=== PATIENT | female | born 1945 | race Caucasian/White ===

== ENCOUNTER 2018-03-08 19:49 | Emergency (ER) | payer MEDICARE, BC ==
--- NOTE | 2018-03-08 21:48 | ER Document Report ---
ED General - General Chief Complaint: Laceration Stated Complaint: LEG LACERATION Time Seen by Provider: 03/08/18 21:40 Notes: Patient is a 72-year-old female with a past medical history of morbid obesity with associated lymphedema of the bilateral lower extremities who presents after a mechanical fall sustaining a 6 cm horizontal laceration over the distal left lower extremity. Patient states that she was using her motorized wheelchair through a garden and it got stuck in the mud. She states that she stood up feeling that her weight was likely causing the wheelchair to become stuck. However she states she was unable to support her own weight, falling forward and striking her leg against a wheelchair. She states that she did fall backwards but does not believe that she hit her head or neck. She denies any pain to any other location other than her leg where she describes a stinging , burning, constant pain to the area. Nothing improves or worsens that pain. She states she has had multiple prior lacerations to her legs and that they are always unable to be repaired via sutures due to the friable nature of her skin. TRAVEL OUTSIDE OF THE [place] IN LAST 30 DAYS: No - Related Data Allergies/Adverse Reactions: ciprofloxacin [From Cipro] Allergy (Verified 03/08/18 19:57) Sulfa (Sulfonamide Antibiotics) Allergy (Verified 03/08/18 19:57) Past Medical History - General Information source: Patient - Social History Smoking Status: Never Smoker Chew tobacco use (# tins/day): No Frequency of alcohol use: Occasional Drug Abuse: None Lives with: Spouse/Significant other Family History: Reviewed & Not Pertinent Patient has suicidal ideation: No Patient has homicidal ideation: No - Past Medical History Cardiac Medical History: Reports: Hx Congestive Heart Failure, Hx Hypercholesterolemia, Hx Hypertension Renal/ Medical History: Denies: Hx Peritoneal Dialysis GI Medical History: Reports: Hx Gastroesophageal Reflux Disease Past Surgical History: Reports: Hx Abdominal Surgery - lap band Review of Systems - Review of Systems Notes: Constitutional: Negative for fever. Eyes: Negative for visual changes. ENT: Negative for facial injury Cardiovascular: Negative for chest injury. Respiratory: Negative for shortness of breath. Gastrointestinal: Negative for abdominal injury. Genitourinary: Negative for genital injury Musculoskeletal: Negative for back injury. Skin: Positive for laceration/abrasions. Neurological: Negative for head injury. Physical Exam - Vital signs Vitals: Temp Pulse Resp BP Pulse Ox 98.1 F 112 H 18 132/76 H 95 03/08/18 20:18 03/08/18 20:18 03/08/18 20:18 03/08/18 20:18 03/08/18 20:18 Interpretation: Tachycardic - Resolved at the time of my assessment Notes: PHYSICAL EXAMINATION: GENERAL: Well-appearing, well-nourished and in no acute distress. HEAD: Atraumatic, normocephalic. EYES: Pupils equal round and reactive to light, extraocular movements intact, sclera anicteric, conjunctiva are normal. ENT: nares patent, oropharynx clear without exudates. Moist mucous membranes. NECK: Normal range of motion, supple without lymphadenopathy LUNGS: Breath sounds clear to auscultation bilaterally and equal. No wheezes rales or rhonchi. HEART: Regular rate and rhythm without murmurs ABDOMEN: Soft, nontender, normoactive bowel sounds. No guarding, no rebound. No masses appreciated. EXTREMITIES: Normal range of motion, 4+ pitting edema in the bilateral lower extremities that is equal and symmetric consistent with lymphedema NEUROLOGICAL: No focal neurological deficits. Moves all extremities spontaneously and on command. PSYCH: Normal mood, normal affect. SKIN: Warm, Dry, normal turgor, there is a 6 cm horizontal laceration over the left distal lower extremity Course - Re-evaluation Re-evalutation: 03/08/18 21:47 Patient presents after mechanical fall which she sustained a 6 cm laceration over her distal left lower extremity. The area of the laceration is over a diffusely edematous, lymphedema area. Patient reports that any of prior attempts of placing stitches in this area have been unsuccessful and the tissue was extremely friable. The wound was therefore irrigated and cleaned and was able to be closed using Dermabond with success. Patient's tetanus is already up -to-date. She denies any additional trauma or concerns from today's injury. At this time will discharge with return precautions and follow-up recommendations. Verbal discharge instructions given a the bedside and opportunity for questions given. Medication warnings reviewed. Patient is in agreement with this plan and has verbalized understanding of return precautions and the need for primary care follow-up in the next 24-72 hours. - Vital Signs Vital signs: Temp Pulse Resp BP Pulse Ox 98.4 F 89 20 138/73 H 97 03/08/18 21:55 03/08/18 21:55 03/08/18 21:55 03/08/18 21:55 03/08/18 21:55 Procedures - Laceration/Wound Repair Left Leg Wound length (cm): 6 Wound's Depth, Shape: Superficial Laceration pre-procedure: Sterile PPE donned Wound explored: Clean Irrigated w/ Saline (mLs): 300 Wound Debrided: Minimal Wound Repaired With: Dermabond Post-procedure wound care: Sterile dressing applied Post-procedure NV exam normal: Yes Complications: No Discharge - Discharge Clinical Impression: Lymphedema Fall Qualifiers: Encounter type: initial encounter Qualified Code(s): W19.XXXA - Unspecified fall, initial encounter Laceration of left leg Qualifiers: Encounter type: initial encounter Qualified Code(s): S81.812A - Laceration without foreign body, left lower leg, initial encounter Condition: Good Disposition: HOME, SELF-CARE Additional Instructions: The wound has been closed with glue. Please do not pick at the at the wound. Do not cover it with any kind of antibiotic ointment as this can cause the glue to loosen. Return immediately if you develop spreading redness around the wound , pus from the wound, worsening pain, or a fever of >100.4. Keep the area clean and dry.
[2018-03-09 02:03] VITALS: BP 138/73
== END 2018-03-08 21:58 | disposition home or self-care (01) ==
LOC: ER 19:49
PROC: 0HQLXZZ Repair Left Lower Leg Skin, External Approach (ICD-10-PCS; principal; 2018-03-08)
DX: S81.812A Laceration without foreign body, left lower leg, initial encounter (principal); W19.XXXA Unspecified fall, initial encounter; E66.01 Morbid (severe) obesity due to excess calories; I89.0 Lymphedema, not elsewhere classified; I50.9 Heart failure, unspecified; E78.00 Pure hypercholesterolemia, unspecified; I10 Essential (primary) hypertension; Z88.2 Allergy status to sulfonamides; Z88.3 Allergy status to other anti-infective agents
CPT/HCPCS: 99283

== ENCOUNTER 2018-03-12 19:14 | Inpatient (IN) | payer MEDICARE, BC ==
--- NOTE | 2018-03-12 19:44 | ER Document Report ---
ED General - General Stated Complaint: DIFFICULTY BREATHING Time Seen by Provider: 03/12/18 19:33 Notes: patient is a morbidly obese nonambulatory 72 year old female who presents to the ED complaining of multiple complaints but per patient and EMS run sheet, she admits to SOB without cough, chest pain but cannot give a timeline. She states she has had difficulty with her breathing for the past 2-3 years and states her breathing now feels consistent with her baseline. Regarding her urinary symptoms, patient admits to frequency, urgency, denies pyuria. She cannot give a timeline for onset. She was seen her on 03/06 s/p fall for a laceration on her left anterior tibia that was cleaned and closed with dermabond due to significant lower extremity edema. PMH; congestive heart failure, GERD, diabetes Primary care is with [facility] TRAVEL OUTSIDE OF THE [place] IN LAST 30 DAYS: No - Related Data Allergies/Adverse Reactions: ciprofloxacin [From Cipro] Allergy (Verified 03/12/18 22:47) Sulfa (Sulfonamide Antibiotics) Allergy (Verified 03/12/18 22:47) Past Medical History - Social History Smoking Status: Smoker,Current Status Unk Family History: Reviewed & Not Pertinent - Past Medical History Cardiac Medical History: Reports: Hx Congestive Heart Failure, Hx Hypercholesterolemia, Hx Hypertension Renal/ Medical History: Denies: Hx Peritoneal Dialysis GI Medical History: Reports: Hx Gastroesophageal Reflux Disease Past Surgical History: Reports: Hx Abdominal Surgery - lap band Review of Systems - Review of Systems Constitutional: No symptoms reported EENT: No symptoms reported Cardiovascular: No symptoms reported Respiratory: See HPI Gastrointestinal: No symptoms reported Genitourinary: See HPI Musculoskeletal: See HPI Skin: See HPI -: Yes All other systems reviewed and negative Physical Exam - Vital signs Vitals: Pulse Ox 100 03/12/18 22:17 - Notes Notes: PHYSICAL EXAM GENERAL: Alert, interacts well. HEAD: Normocephalic, atraumatic. EYES: Pupils equal, round, and reactive to light. Extraocular movements intact. ENT: Oral mucosa moist, tongue midline. NECK: Full range of motion. Supple. Trachea midline. LUNGS: Clear to auscultation bilaterally, no wheezes, rales, or rhonchi. No respiratory distress. HEART: Regular rate and rhythm. No murmurs, gallops, or rubs. ABDOMEN: Soft, nondistended, nontender. No guarding, rebound, or rigidity.. Bowel sounds present in all 4 quadrants. EXTREMITIES: Significant 4+ edema, radial and dorsalis pedis pulses 2/4 bilaterally. No cyanosis. NEUROLOGICAL: Alert and oriented x4. Normal speech. PSYCH: Normal affect, normal mood. SKIN: Warm, dry, normal turgor. Left lower extremity with well demarcated erythema two lacerations with purulent drainage without fluctuance Course - Re-evaluation Re-evalutation: 03/13/18 00:49 Patient is a 72-year-old female is hemodynamically stable, no acute distress and afebrile. Presentation and today concerning for left lower extremity cellulitis and concern for underlying pyelonephritis with review of acute renal failure as well as pyuria. Hospitalists requesting evaluation for possible obstruction. Patient weight prohibits her from CT scan at our facility due to the table cannot support her. Will pursue a ultrasound of bilateral kidneys and continue to reassess. 03/13/18 01:57 US does not show concern for hydronephrosis or evidence of stones. she has been accepted for admission - Vital Signs Vital signs: Temp Pulse Resp BP Pulse Ox 23 H 121/71 97 03/13/18 03:01 03/13/18 03:01 03/13/18 03:01 - Laboratory Result Diagrams: 03/12/18 21:00 03/12/18 21:00 Laboratory results interpreted by me: 03/12/18 03/12/18 03/12/18 20:12 21:00 21:00 WBC 13.5 H RBC 3.65 L Hgb 9.9 L Hct 31.3 L MCHC 31.8 L RDW 17.3 H Seg Neutrophils % 86.0 H Lymphocytes % 5.2 L Absolute Neutrophils 11.6 H Potassium 5.1 H Carbon Dioxide 31 H BUN 62 H Creatinine 2.76 H Est GFR ( Amer) 20 L Est GFR (Non-Af Amer) 17 L Glucose 192 H Direct Bilirubin 0.5 H AST 85 H NT-Pro-B Natriuret Pep Total Protein 6.1 L Albumin 3.4 L Urine Blood MODERATE H Urine Nitrite POSITIVE H Ur Leukocyte Esterase MODERATE H 03/12/18 21:00 WBC RBC Hgb Hct MCHC RDW Seg Neutrophils % Lymphocytes % Absolute Neutrophils Potassium Carbon Dioxide BUN Creatinine Est GFR ( Amer) Est GFR (Non-Af Amer) Glucose Direct Bilirubin AST NT-Pro-B Natriuret Pep 1090 H Total Protein Albumin Urine Blood Urine Nitrite Ur Leukocyte Esterase - Diagnostic Test Radiology reviewed: Image reviewed, Reports reviewed Discharge - Discharge Clinical Impression: Cellulitis, UTI (urinary tract infection), ARF (acute renal failure) Condition: Stable Disposition: ADMITTED INPATIENT Admitting Provider: Hospitalist Unit Admitted: Telemetry
--- NOTE | 2018-03-12 21:04 | RADIOLOGY REPORT (SQ) ---
EXAM DESCRIPTION: TIBIA FIBULA LEFT COMPLETED DATE/TIME: 03/12/2018 8:52 pm REASON FOR STUDY: erythema, tenderness COMPARISON: None. NUMBER OF VIEWS: Two views. TECHNIQUE: Two radiographic images acquired of the left tibia and fibula to include the knee and ank le in at least one projection. LIMITATIONS: None. FINDINGS: MINERALIZATION: Normal. BONES: No acute fracture or dislocation. Severe medial tibiofemoral arthrosis. . SOFT TISSUES: Diffuse swelling. Medial soft tissue laceration without radiopaque foreign body. OTHER: No other significant finding. IMPRESSION: Medial soft tissue laceration without radiopaque foreign body. No fracture. TECHNICAL DOCUMENTATION: JOB ID: [id number] 2010 [employer]- All Rights Reserved Reading location - IP/workstation name: [email or web address]
--- NOTE | 2018-03-12 21:08 | RADIOLOGY REPORT (SQ) ---
EXAM DESCRIPTION: CHEST SINGLE VIEW COMPLETED DATE/TIME: 03/12/2018 8:52 pm REASON FOR STUDY: SOB COMPARISON: None. EXAM PARAMETERS: NUMBER OF VIEWS: One view. TECHNIQUE: Single frontal radiographic view of the chest acquired. RADIATION DOSE: NA LIMITATIONS: None. FINDINGS: LUNGS AND PLEURA: No consolidation, masses or pneumothorax. No pleural effusion. MEDIASTINUM AND HILAR STRUCTURES: Age-appropriate. HEART AND VASCULAR STRUCTURES: Heart upper limits of normal in size. Normal vasculature. BONES: No acute findings. HARDWARE: None in the chest. OTHER: No other significant finding. IMPRESSION: NO ACUTE RADIOGRAPHIC FINDING IN THE CHEST. TECHNICAL DOCUMENTATION: JOB ID: [id number] 2010 [employer]- All Rights Reserved Reading location - IP/workstation name: [email or web address]
[2018-03-12 21:11] LABS: ABSOLUTE BASOPHILS # (AUTO) 0.1 10^3/uL (0.0-0.2); ABSOLUTE EOSINOPHILS # (AUTO) 0.1 10^3/uL (0.0-0.6); ABSOLUTE LYMPHOCYTES (AUTO) 0.7 10^3/uL (0.5-4.7); ABSOLUTE MONOCYTES (AUTO) 1.1 10^3/uL (0.1-1.4); ABSOLUTE NEUT (AUTO) 11.6 10^3/uL (1.7-8.2); BASOPHILS % (AUTO) 0.6 % (0-2); EOSINOPHILS % (AUTO) 0.4 % (0-6); HEMATOCRIT 31.3 % (36.0-47.0); HEMOGLOBIN 9.9 g/dL (12.0-15.5); LYMPHOCYTES % (AUTO) 5.2 % (13-45); MEAN CORPUSCULAR HEMOGLOBIN 27.3 pg (27.0-33.4); MEAN CORPUSCULAR HGB CONC 31.8 g/dL (32.0-36.0); MEAN CORPUSCULAR VOLUME 86 fl (80-97); MONOCYTES % (AUTO) 7.8 % (3-13); PLATELET COUNT 207 10^3/uL (150-450); RED BLOOD COUNT 3.65 10^6/uL (3.72-5.28); RED CELL DISTRIBUTION WIDTH 17.3 % (11.5-14.0); TOTAL CELLS COUNTED % (AUTO) 100 %; WHITE BLOOD COUNT 13.5 10^3/uL (4.0-10.5)
[2018-03-12 21:14] LABS: VENOUS BLOOD BASE EXCESS 3.3 mmol/L; VENOUS BLOOD HCO3 30.6 mmol/L (20-32); VENOUS BLOOD PCO2 61.2 mmHg (35-63); VENOUS BLOOD PH 7.32 (7.30-7.42)
[2018-03-12 21:18] LABS: INTERNATIONAL RATION (INR) 1.08; PROTHROMBIN TIME 14.6 SEC (11.4-15.4)
[2018-03-12 21:27] LABS: ALANINE AMINOTRANSFERASE 40 U/L (9-52); ALBUMIN 3.4 g/dL (3.5-5.0); ALKALINE PHOSPHATASE 78 U/L (38-126); ANION GAP 11 (5-19); ASPARTATE AMINO TRANSFERASE 85 U/L (14-36); BILIRUBIN,DIRECT 0.5 mg/dL (0.0-0.4); BILIRUBIN,TOTAL 0.5 mg/dL (0.2-1.3); BLOOD UREA NITROGEN 62 mg/dL (7-20); CARBON DIOXIDE 31 mmol/L (22-30); CHLORIDE 98 mmol/L (98-107); GLUCOSE 192 mg/dL (75-110); POTASSIUM 5.1 mmol/L (3.6-5.0); SODIUM 140.2 mmol/L (137-145); TOTAL PROTEIN 6.1 g/dL (6.3-8.2)
[2018-03-12 21:51] LABS: AMORPHOUS SEDIMENT,URINE TRACE /HPF; APPEARANCE,URINE SLIGHTLY-CLOUDY; BILIRUBIN,URINE NEGATIVE (NEGATIVE); COLOR,URINE YELLOW; GLUCOSE, URINE NEGATIVE (NEGATIVE); KETONES,URINE NEGATIVE (NEGATIVE); LEUKOCYTE ESTERASE,URINE MODERATE (NEGATIVE); NITRITE,URINE POSITIVE (NEGATIVE); PROTEIN,URINE NEGATIVE (NEGATIVE); URINE SPECIFIC GRAVITY 1.015; UROBILINOGEN,URINE NEGATIVE mg/dL (<2.0)
--- NOTE | 2018-03-13 01:38 | RADIOLOGY REPORT (SQ) ---
EXAM DESCRIPTION: Renal ultrasound. CLINICAL HISTORY: bilateral, eval for obstruction, hydronephrosis COMPARISON: None. TECHNIQUE: Real-time sonographic images of the retroperitoneum were obtained using a curved multihertz transducer. Large body habitus. FINDINGS: The visualized portions of the aorta and IVC are unremarkable. The right kidney measures 9.5 cm in length. The left kidney measures 8.6 cm in length. No definite solid renal mass, shadowing renal calculi, or hydronephrosis. Urinary bladder not identified. Reported Bosch catheter. IMPRESSION: No definite sonographic abnormality identified. No definite hydronephrosis.
[2018-03-13] MEDS ORDERED: ONDANSETRON HCL INJ/PF 4 MG/2 ML SDV IV PRN (02:04)
[2018-03-13] MEDS ORDERED: IPRATROPIUM/ALBUTEROL 0.5-2.5 MG/3 ML AMPUL NEB PRN ×2 (02:04→11:32)
[2018-03-13] MEDS ORDERED: MAG HYDROX/AL HYDROX/SIMETH SUSP 30 ML UDCUP PO PRN (02:04)
[2018-03-13] MEDS ORDERED: MAGNESIUM HYDROXIDE SUSP 30 ML UDCUP PO PRN (02:04)
[2018-03-13] MEDS ORDERED: ACETAMINOPHEN 325 MG TABLET PO PRN (02:04)
[2018-03-13] MEDS ORDERED: CEFTRIAXONE 1 GM/D5W RTU 1 GM/50 ML RTUPB IV ONE (03:00)
[2018-03-13] MEDS: NORMAL SALINE 1000 ML 1,000 ML IV SCH ×2 (04:24→10:41)
[2018-03-13 05:17] LABS: ABSOLUTE EOSINOPHILS # (AUTO) 0.1 10^3/uL (0.0-0.6); ABSOLUTE LYMPHOCYTES (AUTO) 0.7 10^3/uL (0.5-4.7); ABSOLUTE MONOCYTES (AUTO) 1.1 10^3/uL (0.1-1.4); ABSOLUTE NEUT (AUTO) 10.7 10^3/uL (1.7-8.2); BASOPHILS % (AUTO) 0.3 % (0-2); EOSINOPHILS % (AUTO) 0.6 % (0-6); HEMATOCRIT 29.8 % (36.0-47.0); HEMOGLOBIN 9.6 g/dL (12.0-15.5); LYMPHOCYTES % (AUTO) 5.3 % (13-45); MEAN CORPUSCULAR HEMOGLOBIN 27.7 pg (27.0-33.4); MEAN CORPUSCULAR HGB CONC 32.1 g/dL (32.0-36.0); MEAN CORPUSCULAR VOLUME 86 fl (80-97); MONOCYTES % (AUTO) 8.9 % (3-13); PLATELET COUNT 189 10^3/uL (150-450); RED BLOOD COUNT 3.45 10^6/uL (3.72-5.28); RED CELL DISTRIBUTION WIDTH 17.1 % (11.5-14.0); SEGMENTED NEUTROPHILS % (AUTO) 84.9 % (42-78); TOTAL CELLS COUNTED % (AUTO) 100 %; WHITE BLOOD COUNT 12.6 10^3/uL (4.0-10.5)
[2018-03-13 05:32] LABS: ANION GAP 11 (5-19); BLOOD UREA NITROGEN 63 mg/dL (7-20); CALCIUM 8.7 mg/dL (8.4-10.2); CARBON DIOXIDE 29 mmol/L (22-30); CHLORIDE 101 mmol/L (98-107); GLUCOSE 190 mg/dL (75-110); POTASSIUM 5.1 mmol/L (3.6-5.0)
[2018-03-13] MEDS: HEPARIN SOD (PORCINE) 5,000 UNIT/ML 1 ML SYRINGE SUBCUT SCH ×3 (05:52→21:31)
--- NOTE | 2018-03-13 06:05 | PDOC H&P ---
History of Present Illness Admission Date/PCP: 03/13/18 02:07 Patient complains of: Leg pain History of Present Illness: PREM COURTNEY is a 72 year old female with a past medical history of morbid obesity, obstructive sleep apnea, chronic venous stasis, diabetes, hypertension , dyslipidemia and debility. She presents after several falls of the last 5 days seen in the emergency room 3 days ago for 6 cm laceration to the left lower leg. At that time the laceration was amenable to Dermabond patient was discharged with instructions to return if develops increased pain or fever. Over the last 6 hours she is noted increased erythema, edema, pain and discharge prompting evaluation emergency room where she is found to have leukocytosis, acute renal failure pyuria and cellulitis of the left lower leg. She started on empiric antibiotics, IV fluids and referred to the hospitalist for admission. Patient describes multiple previous lower extremity injuries requiring sutures and debridement. She admits recent antibiotic use but cannot recall the name Past Medical History Cardiac Medical History: Reports: Congestive Heart Failure, Hyperlipidema, Hypertension Pulmonary Medical History: Reports: Chronic Obstructive Pulmonary Disease (COPD) Endocrine Medical History: Reports: Diabetes Mellitus Type 2, Obesity GI Medical History: Reports: Gastroesophageal Reflux Disease Social History Information Source: Patient, [facility] Records Smoking Status: Smoker,Current Status Unk Frequency of Alcohol Use: Rare Hx Recreational Drug Use: No Drugs: None - Advance Directive Resuscitation Status: Full Code Family History Family History: DM Parental Family History Reviewed: Yes Children Family History Reviewed: Yes Sibling(s) Family History Reviewed.: Yes Medication/Allergy Allergies/Adverse Reactions: ciprofloxacin [From Cipro] Allergy (Verified 03/12/18 22:47) Sulfa (Sulfonamide Antibiotics) Allergy (Verified 03/12/18 22:47) Review of Systems Constitutional: PRESENT: as per HPI, anorexia, chills, fatigue, fever(s), weakness. ABSENT: headache(s), weight gain, weight loss Eyes: ABSENT: visual disturbances Ears: ABSENT: hearing changes Cardiovascular: ABSENT: chest pain, dyspnea on exertion, edema, orthropnea, palpitations Respiratory: ABSENT: cough, hemoptysis Gastrointestinal: ABSENT: abdominal pain, constipation, diarrhea, hematemesis, hematochezia, nausea, vomiting Genitourinary: PRESENT: as per HPI, dysuria. ABSENT: hematuria Musculoskeletal: ABSENT: joint swelling Integumentary: ABSENT: rash, wounds Neurological: ABSENT: abnormal gait, abnormal speech, confusion, dizziness, focal weakness, syncope Psychiatric: ABSENT: anxiety, depression, homidical ideation, suicidal ideation Endocrine: ABSENT: cold intolerance, heat intolerance, polydipsia, polyuria Hematologic/Lymphatic: PRESENT: as per HPI, other - Chronic changes of lymphedema with venous stasis. ABSENT: easy bleeding, easy bruising Physical Exam Vital Signs: Temp Pulse Resp BP Pulse Ox 109 H 23 H 121/71 97 03/13/18 04:06 03/13/18 03:01 03/13/18 03:01 03/13/18 03:01 General appearance: PRESENT: cooperative, disheveled, mild distress, morbidly obese Head exam: PRESENT: atraumatic, normocephalic Eye exam: PRESENT: conjunctiva pink, EOMI, PERRLA. ABSENT: scleral icterus Ear exam: PRESENT: normal external ear exam Mouth exam: PRESENT: moist, tongue midline Neck exam: ABSENT: carotid bruit, JVD, lymphadenopathy, thyromegaly Respiratory exam: PRESENT: clear to auscultation janis, crackles, decreased breath sounds, symmetrical, tachypnea. ABSENT: rales, rhonchi, stridor, wheezes Cardiovascular exam: PRESENT: RRR. ABSENT: diastolic murmur, rubs, systolic murmur Pulses: PRESENT: normal dorsalis pedis pul Vascular exam: PRESENT: normal capillary refill GI/Abdominal exam: PRESENT: normal bowel sounds, soft. ABSENT: distended, guarding, mass, organolmegaly, rebound, tenderness Rectal exam: PRESENT: deferred Extremities exam: PRESENT: +2 edema Musculoskeletal exam: PRESENT: tenderness Neurological exam: PRESENT: alert, awake, oriented to person, oriented to place , oriented to time, oriented to situation, CN II-XII grossly intact. ABSENT: motor sensory deficit Psychiatric exam: PRESENT: appropriate affect, normal mood. ABSENT: homicidal ideation, suicidal ideation Skin exam: PRESENT: abrasion, erythema, skin tears, warm Results Laboratory Results: 03/13/18 04:21 03/13/18 04:21 03/13/18 03/13/18 04:21 04:21 WBC 12.6 H RBC 3.45 L Hgb 9.6 L Hct 29.8 L MCV 86 MCH 27.7 MCHC 32.1 RDW 17.1 H Plt Count 189 Seg Neutrophils % 84.9 H Lymphocytes % 5.3 L Monocytes % 8.9 Eosinophils % 0.6 Basophils % 0.3 Absolute Neutrophils 10.7 H Absolute Lymphocytes 0.7 Absolute Monocytes 1.1 Absolute Eosinophils 0.1 Absolute Basophils 0.0 Sodium 141.0 Potassium 5.1 H Chloride 101 Carbon Dioxide 29 Anion Gap 11 BUN 63 H Creatinine 2.30 H Est GFR ( Amer) 25 L Est GFR (Non-Af Amer) 21 L Glucose 190 H Calcium 8.7 Impressions: Chest X-Ray 03/12/18 19:42 IMPRESSION: NO ACUTE RADIOGRAPHIC FINDING IN THE CHEST. Tibia/Fibula X-Ray 03/12/18 19:42 IMPRESSION: Medial soft tissue laceration without radiopaque foreign body. No fracture. Renal Ultrasound 03/13/18 00:00 IMPRESSION: No definite sonographic abnormality identified. No definite hydronephrosis. Assessment & Plan - Diagnosis (1) Diabetes Qualifiers: Diabetes mellitus type: type 1 Is this a current diagnosis for this admission?: Yes Plan: Home regiment with sliding scale insulin avoid metformin. (2) ARF (acute renal failure) Is this a current diagnosis for this admission?: Yes Plan: Clearly somewhat prerenal awaiting med reconciliation, avoid nephrotoxic meds and doses IV fluid challenge reevaluate chemistry (3) Cellulitis Is this a current diagnosis for this admission?: Yes Plan: Empiric antibiotics, elevation, surgical consultation given diabetes (4) UTI (urinary tract infection) Is this a current diagnosis for this admission?: Yes Plan: No evidence for obstruction, empiric antibiotic, follow-up CBC, blood and urine culture (5) Lymphedema Is this a current diagnosis for this admission?: Yes Plan: Supportive care, TARA stockings as tolerated (6) Obstructive sleep apnea Is this a current diagnosis for this admission?: Yes Plan: BiPAP, patient is high risk for respiratory decompensation with analgesia or sedation. Follow-up chemistry consider ABG - Time Time Spent: 50 to 70 Minutes - Inpatient Certification Medical Necessity: Need Close Monitoring Due to Risk of Patient Decompensation
--- NOTE | 2018-03-13 08:44 | EKG REPORT ---
SEVERITY:- BORDERLINE ECG - SINUS TACHYCARDIA BORDERLINE R WAVE PROGRESSION, ANTERIOR LEADS BORDERLINE T ABNORMALITIES, ANTERIOR LEADS : Confirmed by: Julius Davidson 13-Mar-2018 08:43:23
[2018-03-13] MEDS ORDERED: CEFTRIAXONE 1 GM/D5W RTU 1 GM/50 ML RTUPB IV SCH (10:00)
[2018-03-13] MEDS ORDERED: DOCUSATE SODIUM 100 MG CAPSULE PO SCH (10:00)
[2018-03-13] MEDS: CEFTRIAXONE SODIUM 1,000 MG in DEXTROSE 5%-WATER 50 ML IV SCH (10:39)
[2018-03-13] MEDS ORDERED: ALBUTEROL SULFATE HFA (90 MCG/PUFF) 8 GM MDI (1 MDI/ER DISP) IH PRN (11:32)
[2018-03-13] MEDS ORDERED: DEXTROSE 50%-WATER SYRINGE 25 GM/50 ML DOSE IV PRN (11:37)
[2018-03-13] MEDS ORDERED: DEXTROSE 50%-WATER SYRINGE 12.5 GM/25 ML DOSE IV PRN (11:37)
[2018-03-13] MEDS ORDERED: DEXTROSE 40% GEL 15 GM TUBE PO PRN (11:37)
[2018-03-13] MEDS ORDERED: GLUCAGON,HUMAN RECOMB 1 MG INJ IM PRN (11:37)
[2018-03-13] MEDS ORDERED: DEXTROSE 40% GEL 15 GM TUBE X 2 PO PRN (11:37)
[2018-03-13] MEDS ORDERED: ALBUTEROL SULFATE HFA (90 MCG/PUFF) 200 PUFF/8.5 GM MDI IH PRN (12:18)
[2018-03-13] MEDS: OXYCODONE-ACETAMINOPHEN 5-325 MG TABLET PO PRN (12:27)
[2018-03-13] MEDS: ASPIRIN 81 MG TABLET, CHEWABLE PO SCH (13:39)
[2018-03-13] MEDS: ALLOPURINOL 300 MG TABLET PO SCH (13:39)
[2018-03-13] MEDS: GABAPENTIN 300 MG CAPSULE PO SCH ×2 (13:39→17:12)
[2018-03-13] MEDS: INSULIN LISPRO 100 UNIT/ML 3 ML VIAL SUBCUT PRN ×2 (13:45→16:59)
--- NOTE | 2018-03-13 14:07 | Progress Note ---
Provider Note Provider Note: This is a 72-year-old woman who was admitted early this morning with left leg cellulitis related to a recent fall with laceration. He has been evaluated by the surgeon. She is on antibiotics. She is feeling better overall. She does report having a headache. No chest pain or difficulty breathing. On exam she is awake alert oriented no significant distress. She is morbidly obese and has a difficult time moving about in bed. She has moist mucous membranes. Regular rate rhythm. Lungs are clear to auscultation. Abdomen has normoactive bowel sounds. Skin on the abdomen is clear without evidence of infection or breakdown. Left leg is dressed per surgery. Very light mild cellulitic area emanating from edge of dressing. Plan: Continue antibiotics for cellulitis and for urinary tract infection. Urine culture pending. Patient has an acute kidney injury likely related to both dehydration and urinary tract infection. We have hydrated her and secondary to heart failure I will hold on fluids and follow her creatinine for now. Will encourage good oral intake. Renal function is improving. Most of her home medications have been restarted. She is diabetic and is now on bolus insulin until we get a clear picture of where she is with her blood glucose level and eating. Physical therapy has been ordered secondary to weakness and frequent falls. We will continue to monitor closely and collaborate with surgeon. I have spoken with the patient and her along with daughter today in her room.
[2018-03-13 14:54] LABS: ANION GAP 8 (5-19); BLOOD UREA NITROGEN 48 mg/dL (7-20); CALCIUM 8.4 mg/dL (8.4-10.2); CARBON DIOXIDE 29 mmol/L (22-30); CHLORIDE 103 mmol/L (98-107); GLUCOSE 199 mg/dL (75-110); POTASSIUM 4.8 mmol/L (3.6-5.0); SODIUM 140.2 mmol/L (137-145)
[2018-03-13] MEDS: SUCRALFATE 1 GM TABLET PO SCH ×2 (16:59→21:31)
[2018-03-13] MEDS: COLCHICINE 0.6 MG TABLET PO SCH (17:12)
[2018-03-13] MEDS: FAMOTIDINE 20 MG TABLET PO SCH (17:13)
[2018-03-13] MEDS: CARVEDILOL 3.125 MG TABLET PO SCH (17:13)
[2018-03-13] MEDS ORDERED: (PENDING PHARMACY ID) (Ranitidine Hcl [Zantac 150 Mg Tablet] 150 MG) PO SCH (18:00)
[2018-03-13] MEDS ORDERED: SPIRONOLACTONE 25 MG TABLET PO SCH (18:00)
--- NOTE | 2018-03-13 18:33 | PDOC CONSULTATION ---
Consultation Consult Date: 03/13/18 Consult reason:: Left leg cellulitis History of Present Illness Admission Date/PCP: 03/13/18 02:07 History of Present Illness: PREM COURTNEY is a 72 year old female with left leg cellulitis. She was seen in consultation, at the request of the hospitalist service. Patient reports cutting her leg 3 days ago on her scooter. The patient presented to the emergency department where Dermabond was placed. She was discharged home, however her symptoms worsened. Patient does struggle with chronic venous insufficiency in bilateral lower extremities. She also has poorly controlled diabetes. The patient reports that her pain and swelling increased significantly over the last several days. She then returned to the emergency department, and was admitted. Her pain is sharp and constant. It is worsening. Nothing makes it better. Palpation and movement make it worse. She denies any paresthesias. Past Medical History Cardiac Medical History: Reports: Congestive Heart Failure, Hyperlipidema, Hypertension Pulmonary Medical History: Reports: Chronic Obstructive Pulmonary Disease (COPD) Endocrine Medical History: Reports: Diabetes Mellitus Type 2, Obesity Endocrine History Note: Super obese GI Medical History: Reports: Gastroesophageal Reflux Disease Musculoskeletal History Note: Venous stasis/chronic venous insufficiency of bilateral lower extremities Social History Smoking Status: Smoker,Current Status Unk Frequency of Alcohol Use: Rare Hx Recreational Drug Use: No Drugs: None - Advance Directive Resuscitation Status: Full Code Family History Family History: DM Parental Family History Reviewed: Yes Children Family History Reviewed: Yes Sibling(s) Family History Reviewed.: Yes Medication/Allergy Home Medications: Albuterol Sulfate [Ventolin Hfa] 2 puff IH Q4HP PRN 03/13/18 Alfuzosin HCl [Alfuzosin HCl ER] 10 mg PO DAILY 03/13/18 Allopurinol [Zyloprim 300 mg Tablet] 300 mg PO DAILY 03/13/18 Aspirin [Aspirin 81 mg Chewable Tablet] 81 mg PO DAILY 03/13/18 Carvedilol [Coreg 3.125 mg Tablet] 3.125 mg PO Q12 03/13/18 Colchicine [Colchicine 0.6 mg Tablet] 0.6 mg PO DAILY 03/13/18 Cyanocobalamin (Vitamin B-12) [Vitamin B-12 1000 mcg Tablet] 1,000 mcg PO DAILY 03/13/18 Cyclobenzaprine HCl [Flexeril 10 mg Tablet] 10 mg PO TIDP PRN 03/13/18 Ergocalciferol (Vitamin D2) [Drisdol 50,000 unit (1.25MG) Capsule] 50,000 unit PO MOFR@1000 03/13/18 Folic Acid [Folvite 1 mg Tablet] 1 mg PO DAILY 03/13/18 Furosemide [Lasix 20 mg Tablet] 40 mg PO BID 03/13/18 Gabapentin [Neurontin 300 mg Capsule] 300 mg PO TID 03/13/18 Gabapentin [Neurontin 400 mg Capsule] 400 mg PO QHS 03/13/18 Glipizide [Glucotrol 5 mg Tablet] 10 mg PO BID 03/13/18 Guaifenesin/P-Ephed HCl [Mucinex D Tablet] 1 tab PO DAILY 03/13/18 Ipratropium/Albuterol Sulfate [Duoneb 3 ml Ampul] 1 vial NEB TIDP PRN 03/13/18 L.acidoph,Paracasei, B.lactis [Probiotic] 1 cap PO DAILY 03/13/18 Levothyroxine Sodium [Synthroid 0.05 mg Tablet] 50 mcg PO Q6AM 03/13/18 Liraglutide [Victoza 2-Jean] 1.8 mg SQ DAILY 03/13/18 Lisinopril [Prinivil 5 mg Tablet] 5 mg PO DAILY 03/13/18 Magnesium Oxide [Mag-Ox 400 mg Tablet] 400 mg PO BID 03/13/18 Metformin HCl [Metformin HCl ER] 1,000 mg PO BID 03/13/18 Metolazone [Zaroxolyn 2.5 mg Tablet] 2.5 mg PO MOWEFR@1000 03/13/18 Multivit-Minerals/FA/Lycopene [One Daily Tablet] 1 tab PO DAILY 03/13/18 Nitrofurantoin Macrocrystal [Nitrofurantoin] 50 mg PO DAILY 03/13/18 [place]-3S/Dha/Epa/Fish Oil/D3 [[place] Essentials Liquid] 5 ml PO BID 03/13/18 Oxycodone HCl/Acetaminophen [Percocet 5-325 mg Tablet] 1 tab PO Q4HP PRN Potassium Chloride [Klor-Con M20] 20 meq PO BID 03/13/18 Pramipexole Di-HCl [Mirapex] 0.75 mg PO QHS 03/13/18 Ranitidine HCl [Zantac 150 mg Tablet] 150 mg PO BID 03/13/18 Spironolactone [Aldactone 25 mg Tablet] 25 mg PO BID 03/13/18 Sucralfate [Carafate 1 gm Tablet] 1 gm PO ACHS 03/13/18 Allergies/Adverse Reactions: ciprofloxacin [From Cipro] Allergy (Verified 03/12/18 22:47) Sulfa (Sulfonamide Antibiotics) Allergy (Verified 03/12/18 22:47) Review of Systems Constitutional: PRESENT: chills, fever(s) Eyes: ABSENT: visual disturbances Ears: ABSENT: hearing changes Nose, Mouth, and Throat: ABSENT: mouth pain, sore throat Cardiovascular: PRESENT: edema, orthropnea. ABSENT: chest pain Respiratory: ABSENT: cough, hemoptysis Gastrointestinal: ABSENT: abdominal pain, bloating, diarrhea Genitourinary: ABSENT: hematuria Musculoskeletal: ABSENT: back pain Integumentary: PRESENT: erythema - Left lower extremity, wounds - Left lower extremity Neurological: ABSENT: confusion, dizziness, memory loss, paresthesias Psychiatric: ABSENT: anxiety, depression Hematologic/Lymphatic: ABSENT: easy bleeding, easy bruising Physical Exam Vital Signs: Temp Pulse Resp BP Pulse Ox 99.6 F 103 H 18 109/42 L 96 03/13/18 11:43 03/13/18 11:43 03/13/18 11:43 03/13/18 11:43 03/13/18 11:43 Intake & Output 03/12/18 03/13/18 03/14/18 06:59 06:59 06:59 Intake Total 300 200 Output Total 625 400 Balance -325 -200 Weight 184.4 kg General appearance: PRESENT: other - Super obese Head exam: PRESENT: atraumatic, normocephalic Eye exam: PRESENT: EOMI, PERRLA. ABSENT: scleral icterus Mouth exam: PRESENT: moist, neck supple Neck exam: ABSENT: lymphadenopathy, meningismus, tenderness, thyromegaly, tracheal deviation Respiratory exam: PRESENT: decreased breath sounds. ABSENT: accessory muscle use, chest wall tenderness, tachypnea Cardiovascular exam: PRESENT: RRR Pulses: PRESENT: normal radial pulses Vascular exam: PRESENT: other - Gaiter sign bilaterally GI/Abdominal exam: PRESENT: soft. ABSENT: distended, tenderness Rectal exam: PRESENT: deferred Extremities exam: PRESENT: calf tenderness - Left, pedal edema - Bilaterally, worse on the left, tenderness - Left lower extremity, +1 edema - Right lower extremity, +2 edema - Left lower extremity Neurological exam: PRESENT: alert, awake, oriented to person, oriented to place , oriented to time, oriented to situation, CN II-XII grossly intact Psychiatric exam: ABSENT: agitated, anxious, depressed Skin exam: PRESENT: abrasion - Abrasion to the left lower extremity, 10 cm in length, 5 mm in width, 5 mm in depth, erythema - Left lower extremity. ABSENT: jaundice, pallor Results Laboratory Results: 03/13/18 04:21 03/13/18 04:21 03/13/18 03/13/18 04:21 04:21 WBC 12.6 H RBC 3.45 L Hgb 9.6 L Hct 29.8 L MCV 86 MCH 27.7 MCHC 32.1 RDW 17.1 H Plt Count 189 Seg Neutrophils % 84.9 H Lymphocytes % 5.3 L Monocytes % 8.9 Eosinophils % 0.6 Basophils % 0.3 Absolute Neutrophils 10.7 H Absolute Lymphocytes 0.7 Absolute Monocytes 1.1 Absolute Eosinophils 0.1 Absolute Basophils 0.0 Sodium 141.0 Potassium 5.1 H Chloride 101 Carbon Dioxide 29 Anion Gap 11 BUN 63 H Creatinine 2.30 H Est GFR ( Amer) 25 L Est GFR (Non-Af Amer) 21 L Glucose 190 H Calcium 8.7 Impressions: Chest X-Ray 03/12/18 19:42 IMPRESSION: NO ACUTE RADIOGRAPHIC FINDING IN THE CHEST. Tibia/Fibula X-Ray 03/12/18 19:42 IMPRESSION: Medial soft tissue laceration without radiopaque foreign body. No fracture. Renal Ultrasound 03/13/18 00:00 IMPRESSION: No definite sonographic abnormality identified. No definite hydronephrosis. Assessment & Plan - Diagnosis (1) Chronic venous stasis Is this a current diagnosis for this admission?: Yes (2) Cellulitis Qualifiers: Site of cellulitis of extremity: lower extremity Laterality: left Is this a current diagnosis for this admission?: Yes (3) Laceration of left leg Qualifiers: Encounter type: initial encounter Qualified Code(s): S81.812A - Laceration without foreign body, left lower leg, initial encounter - Plan Summary Plan Summary: This is a 72-year-old female with cellulitis after a laceration to the left lower extremity. The patient has chronic venous stasis, and associated gaiter sign. This is compounding her issues and preventing healing of her laceration. I have cleaned the wound today and removed all of the Dermabond. I have placed a damp dressing on the wound, and provided compression in an attempt to lessen the edema. Healing will be expedited by decreasing the amount of edema in the lower extremity. I have also recommended the patient elevate the leg above the level of the heart. Continue with compression and dressing changes. 2 new antibiotics. I will continue to follow this patient closely with you.
[2018-03-13] MEDS: GABAPENTIN 400 MG CAPSULE PO SCH (21:31)
[2018-03-13] MEDS: PRAMIPEXOLE DI-HCL 0.5 MG TABLET PO SCH (21:31)
[2018-03-13] MEDS ORDERED: PRAMIPEXOLE DI HCL 0.75 MG PO SCH (22:00)
[2018-03-14 05:11] LABS: ABSOLUTE BASOPHILS # (AUTO) 0.1 10^3/uL (0.0-0.2); ABSOLUTE EOSINOPHILS # (AUTO) 0.1 10^3/uL (0.0-0.6); ABSOLUTE LYMPHOCYTES (AUTO) 0.8 10^3/uL (0.5-4.7); ABSOLUTE MONOCYTES (AUTO) 0.8 10^3/uL (0.1-1.4); BASOPHILS % (AUTO) 0.7 % (0-2); EOSINOPHILS % (AUTO) 1.6 % (0-6); HEMATOCRIT 28.3 % (36.0-47.0); LYMPHOCYTES % (AUTO) 9.5 % (13-45); MEAN CORPUSCULAR HEMOGLOBIN 27.4 pg (27.0-33.4); MEAN CORPUSCULAR HGB CONC 31.7 g/dL (32.0-36.0); MEAN CORPUSCULAR VOLUME 86 fl (80-97); MONOCYTES % (AUTO) 9.5 % (3-13); PLATELET COUNT 167 10^3/uL (150-450); RED BLOOD COUNT 3.27 10^6/uL (3.72-5.28); RED CELL DISTRIBUTION WIDTH 17.2 % (11.5-14.0); SEGMENTED NEUTROPHILS % (AUTO) 78.7 % (42-78); TOTAL CELLS COUNTED % (AUTO) 100 %; WHITE BLOOD COUNT 8.8 10^3/uL (4.0-10.5)
[2018-03-14] MEDS: OXYCODONE-ACETAMINOPHEN 5-325 MG TABLET PO PRN ×3 (05:39→18:37)
[2018-03-14] MEDS: CARVEDILOL 3.125 MG TABLET PO SCH ×2 (05:40→17:46)
[2018-03-14] MEDS: HEPARIN SOD (PORCINE) 5,000 UNIT/ML 1 ML SYRINGE SUBCUT SCH ×3 (05:41→22:30)
[2018-03-14] MEDS: LEVOTHYROXINE SODIUM 0.05 MG TABLET PO SCH (05:42)
[2018-03-14 06:01] LABS: ANION GAP 7 (5-19); BLOOD UREA NITROGEN 46 mg/dL (7-20); CALCIUM 8.3 mg/dL (8.4-10.2); CARBON DIOXIDE 30 mmol/L (22-30); CHLORIDE 103 mmol/L (98-107); GLUCOSE 141 mg/dL (75-110); POTASSIUM 4.7 mmol/L (3.6-5.0); SODIUM 139.6 mmol/L (137-145)
[2018-03-14] MEDS ORDERED: MULTIVIT MINERALS PO SCH (10:00)
[2018-03-14] MEDS ORDERED: P EPHED HCL PO SCH (10:00)
[2018-03-14] MEDS ORDERED: LYCOPENE PO SCH (10:00)
[2018-03-14] MEDS ORDERED: [UNRECOGNIZED DRUG - OTHER] PO SCH (10:00)
[2018-03-14] MEDS ORDERED: GUAIFENESIN PO SCH (10:00)
[2018-03-14] MEDS ORDERED: PSEUDOEPHEDRINE HCL 30 MG TABLET PO SCH (10:00)
[2018-03-14] MEDS ORDERED: (PENDING PHARMACY ID) (L.Acidoph,Paracasei, B.Lactis [Probiotic] 1 CAP) PO SCH (10:00)
[2018-03-14] MEDS ORDERED: GUAIFENESIN 600 MG TABLET.SA PO SCH (10:00)
[2018-03-14] MEDS: LACTOBACILLUS ACIDOPHILUS 250 MG TAB PO SCH (10:15)
[2018-03-14] MEDS: FAMOTIDINE 20 MG TABLET PO SCH ×2 (10:17→17:45)
[2018-03-14] MEDS: SUCRALFATE 1 GM TABLET PO SCH ×4 (10:17→22:30)
[2018-03-14] MEDS: MULTIVITAMIN TABLET PO SCH (10:18)
[2018-03-14] MEDS: FOLIC ACID 1 MG TABLET PO SCH (10:18)
[2018-03-14] MEDS: CEFTRIAXONE SODIUM 1,000 MG in DEXTROSE 5%-WATER 50 ML IV SCH (10:18)
[2018-03-14] MEDS: GABAPENTIN 300 MG CAPSULE PO SCH ×3 (10:18→17:46)
[2018-03-14] MEDS: CYANOCOBALAMIN (VITAMIN B-12) 1,000 MCG TABLET PO SCH (10:18)
[2018-03-14] MEDS: ASPIRIN 81 MG TABLET, CHEWABLE PO SCH (13:23)
[2018-03-14] MEDS: INSULIN LISPRO 100 UNIT/ML 3 ML VIAL SUBCUT PRN (13:23)
[2018-03-14] MEDS: ALLOPURINOL 300 MG TABLET PO SCH (13:23)
[2018-03-14] MEDS ORDERED: DEXTROSE 50%-WATER 25 GM/50 ML DISP.SYRIN IV PRN ×4 (13:47→13:50)
[2018-03-14] MEDS ORDERED: DEXTROSE 40% GEL 15 GM TUBE PO PRN ×5 (13:47→13:50)
[2018-03-14] MEDS ORDERED: GLUCAGON,HUMAN RECOMB 1 MG INJ IM PRN (13:50)
--- NOTE | 2018-03-14 17:13 | PDOC PROGRESS REPORT ---
Subjective Progress Note for:: 03/14/18 Subjective:: pains left lower leg wound Reason For Visit: UTI CELLULITIS,ARF MORBID OBESITY Physical Exam Vital Signs: Temp Pulse Resp BP Pulse Ox 98.7 F 93 18 93/71 L 96 03/14/18 07:07 03/14/18 07:40 03/14/18 07:40 03/14/18 07:07 03/14/18 07:07 Intake & Output 03/13/18 03/14/18 03/15/18 06:59 06:59 06:59 Intake Total 300 2175 Output Total 625 1900 Balance -325 275 Weight 184.4 kg 189.2 kg Exam: Dressing from left lower leg removed. There is erythema around the large anterior lower leg laceration. There was a small amount of purulent discharge on squeezing around the wound. Specimen sent for C/S. Redressed with diluted betadine 4x4,kerlix and coban. Results Laboratory Results: 03/14/18 04:01 03/14/18 04:01 03/14/18 03/14/18 04:01 04:01 WBC 8.8 RBC 3.27 L Hgb 9.0 L Hct 28.3 L MCV 86 MCH 27.4 MCHC 31.7 L RDW 17.2 H Plt Count 167 Seg Neutrophils % 78.7 H Lymphocytes % 9.5 L Monocytes % 9.5 Eosinophils % 1.6 Basophils % 0.7 Absolute Neutrophils 7.0 Absolute Lymphocytes 0.8 Absolute Monocytes 0.8 Absolute Eosinophils 0.1 Absolute Basophils 0.1 Sodium 139.6 Potassium 4.7 Chloride 103 Carbon Dioxide 30 Anion Gap 7 BUN 46 H Creatinine 1.54 H Est GFR ( Amer) 40 L Est GFR (Non-Af Amer) 33 L Glucose 141 H Calcium 8.3 L Impressions: Chest X-Ray 03/12/18 19:42 IMPRESSION: NO ACUTE RADIOGRAPHIC FINDING IN THE CHEST. Tibia/Fibula X-Ray 03/12/18 19:42 IMPRESSION: Medial soft tissue laceration without radiopaque foreign body. No fracture. Renal Ultrasound 03/13/18 00:00 IMPRESSION: No definite sonographic abnormality identified. No definite hydronephrosis. Assessment & Plan - Plan Summary Plan Summary: Wound redressed after obtaining C/S Re-Evaluate in am. May need formal I&D
[2018-03-14] MEDS: COLCHICINE 0.6 MG TABLET PO SCH (17:45)
[2018-03-14] MEDS: CEFUROXIME 250 MG TABLET PO SCH (17:47)
--- NOTE | 2018-03-14 17:47 | PDOC PROGRESS REPORT ---
Subjective Progress Note for:: 03/14/18 Subjective:: The patient's leg is still a little bit painful but is feeling better overall. She is having a little bit of a difficult time getting a deep breath in. She is not quite sure why, has a mild cough. No new acute pain. In general she states that she is feeling better than she did on admission. She is able to eat and drink without difficulty. No chest pain. No nausea or vomiting. Reason For Visit: UTI CELLULITIS,ARF MORBID OBESITY Physical Exam Vital Signs: Temp Pulse Resp BP Pulse Ox 97.9 F 93 20 131/57 H 95 03/14/18 16:52 03/14/18 16:52 03/14/18 16:52 03/14/18 16:52 03/14/18 16:52 Intake & Output 03/13/18 03/14/18 03/15/18 06:59 06:59 06:59 Intake Total 300 2175 Output Total 625 1900 Balance -325 275 Weight 184.4 kg 189.2 kg General appearance: PRESENT: no acute distress, cooperative, morbidly obese Head exam: PRESENT: atraumatic, normocephalic Eye exam: ABSENT: conjunctival injection, scleral icterus Ear exam: PRESENT: normal external ear exam Mouth exam: PRESENT: moist, tongue midline Respiratory exam: PRESENT: tachypnea. ABSENT: rales, rhonchi, unlabored, wheezes Cardiovascular exam: PRESENT: RRR Pulses: PRESENT: normal radial pulses GI/Abdominal exam: PRESENT: normal bowel sounds, soft. ABSENT: distended, guarding, tenderness Gentrourinary exam: PRESENT: indwelling catheter Extremities exam: PRESENT: other - Obese legs with trace edema, left leg wrapped by surgeon. Cellulitis surrounding laceration. Neurological exam: PRESENT: alert, awake, oriented to person, oriented to place , oriented to situation Results Laboratory Results: 03/14/18 04:01 03/14/18 04:01 03/14/18 03/14/18 04:01 04:01 WBC 8.8 RBC 3.27 L Hgb 9.0 L Hct 28.3 L MCV 86 MCH 27.4 MCHC 31.7 L RDW 17.2 H Plt Count 167 Seg Neutrophils % 78.7 H Lymphocytes % 9.5 L Monocytes % 9.5 Eosinophils % 1.6 Basophils % 0.7 Absolute Neutrophils 7.0 Absolute Lymphocytes 0.8 Absolute Monocytes 0.8 Absolute Eosinophils 0.1 Absolute Basophils 0.1 Sodium 139.6 Potassium 4.7 Chloride 103 Carbon Dioxide 30 Anion Gap 7 BUN 46 H Creatinine 1.54 H Est GFR ( Amer) 40 L Est GFR (Non-Af Amer) 33 L Glucose 141 H Calcium 8.3 L Impressions: Chest X-Ray 03/12/18 19:42 IMPRESSION: NO ACUTE RADIOGRAPHIC FINDING IN THE CHEST. Tibia/Fibula X-Ray 03/12/18 19:42 IMPRESSION: Medial soft tissue laceration without radiopaque foreign body. No fracture. Renal Ultrasound 03/13/18 00:00 IMPRESSION: No definite sonographic abnormality identified. No definite hydronephrosis. Assessment & Plan - Diagnosis (1) Laceration of left leg Qualifiers: Encounter type: subsequent encounter Qualified Code(s): S81.812D - Laceration without foreign body, left lower leg, subsequent encounter Is this a current diagnosis for this admission?: Yes Plan: Patient fell and sustained a laceration to her left leg prior to this admission. She was seen in the ER and underwent some treatment. She has returned for this hospitalization with infection related to that laceration. Surgeon is following. The wound is being monitored and dressed. She is on antibiotics. Surgeon has noted today that she may need I&D tomorrow. He is watching the wound closely. (2) Cellulitis Qualifiers: Site of cellulitis of extremity: lower extremity Laterality: left Is this a current diagnosis for this admission?: Yes Plan: Cellulitis seems to have improved from yesterday with cephalosporin, will have changed to oral, will continue. (3) Morbid obesity Is this a current diagnosis for this admission?: Yes Plan: This is definitely complicating her medical problems. Due to morbid obesity she is in a motorized wheelchair. She is weak. She falls at home. We have ordered physical therapy. She understands that weight loss is indicated. (4) UTI (urinary tract infection) Is this a current diagnosis for this admission?: Yes Plan: Patient is growing Klebsiella in her urine. Sensitive to Ceftin. I have changed her to oral cephalosporin, Ceftin. (5) Fall Qualifiers: Encounter type: initial encounter Qualified Code(s): W19.XXXA - Unspecified fall, initial encounter Is this a current diagnosis for this admission?: Yes Plan: Multifactorial likely. She not only had a UTI but she is morbidly obese. Treating the UTI. (6) Gout Is this a current diagnosis for this admission?: Yes Plan: Medications have been restarted. No evidence of gout attack. (7) Chronic pain Is this a current diagnosis for this admission?: Yes Plan: She is on Flexeril and gabapentin and Percocet at home. Her home medications have been restarted. - Time Time Spent with patient: 25-34 minutes Medications reviewed and adjusted accordingly: Yes - Inpatient Certification Based on my medical assessment, after consideration of the patient's comorbidities, presenting symptoms, or acuity I expect that the services needed warrant INPATIENT care.: Yes I certify that my determination is in accordance with my understanding of Medicare's requirements for reasonable and necessary INPATIENT services [42 CFR 412.3e].: Yes Medical Necessity: Significant Comorbidiites Make Outpatient Treatment Too Risky , Need Close Monitoring Due to Risk of Patient Decompensation, Risk of Complication if Not Cared For in Hospital
[2018-03-14] MEDS: INSULIN LISPRO 100 UNIT/ML 3 ML VIAL SUBCUT SCH (18:05)
[2018-03-14] MEDS: GABAPENTIN 400 MG CAPSULE PO SCH (22:30)
[2018-03-14] MEDS: PRAMIPEXOLE DI-HCL 0.5 MG TABLET PO SCH (22:30)
[2018-03-15] MEDS: OXYCODONE-ACETAMINOPHEN 5-325 MG TABLET PO PRN ×2 (03:30→10:38)
[2018-03-15 05:05] LABS: HEMATOCRIT 28.9 % (36.0-47.0); HEMOGLOBIN 9.4 g/dL (12.0-15.5); MEAN CORPUSCULAR HEMOGLOBIN 28.1 pg (27.0-33.4); MEAN CORPUSCULAR HGB CONC 32.4 g/dL (32.0-36.0); MEAN CORPUSCULAR VOLUME 87 fl (80-97); PLATELET COUNT 204 10^3/uL (150-450); RED BLOOD COUNT 3.33 10^6/uL (3.72-5.28); RED CELL DISTRIBUTION WIDTH 17.1 % (11.5-14.0); WHITE BLOOD COUNT 7.5 10^3/uL (4.0-10.5)
[2018-03-15 05:23] LABS: ANION GAP 9 (5-19); BLOOD UREA NITROGEN 38 mg/dL (7-20); CALCIUM 8.8 mg/dL (8.4-10.2); CARBON DIOXIDE 30 mmol/L (22-30); CHLORIDE 102 mmol/L (98-107); GLUCOSE 125 mg/dL (75-110); POTASSIUM 4.6 mmol/L (3.6-5.0)
[2018-03-15] MEDS: CARVEDILOL 3.125 MG TABLET PO SCH ×2 (06:00→17:39)
[2018-03-15] MEDS: HEPARIN SOD (PORCINE) 5,000 UNIT/ML 1 ML SYRINGE SUBCUT SCH ×3 (06:02→21:53)
[2018-03-15] MEDS: LEVOTHYROXINE SODIUM 0.05 MG TABLET PO SCH (06:03)
[2018-03-15] MEDS: CEFUROXIME 250 MG TABLET PO SCH ×2 (06:03→17:39)
[2018-03-15] MEDS: SUCRALFATE 1 GM TABLET PO SCH ×4 (07:58→21:53)
[2018-03-15] MEDS: INSULIN LISPRO 100 UNIT/ML 3 ML VIAL SUBCUT PRN ×2 (07:59→18:05)
[2018-03-15] MEDS: INSULIN LISPRO 100 UNIT/ML 3 ML VIAL SUBCUT SCH ×3 (07:59→17:49)
[2018-03-15] MEDS: GABAPENTIN 300 MG CAPSULE PO SCH ×3 (10:34→17:40)
[2018-03-15] MEDS: MULTIVITAMIN TABLET PO SCH (10:34)
[2018-03-15] MEDS: CYANOCOBALAMIN (VITAMIN B-12) 1,000 MCG TABLET PO SCH (10:35)
[2018-03-15] MEDS: FOLIC ACID 1 MG TABLET PO SCH (10:35)
[2018-03-15] MEDS: LACTOBACILLUS ACIDOPHILUS 250 MG TAB PO SCH (10:35)
[2018-03-15] MEDS: FAMOTIDINE 20 MG TABLET PO SCH ×2 (10:35→17:39)
[2018-03-15] MEDS ORDERED: ALBUTEROL SULFATE 0.042% NEB (1.25 MG/3 ML) AMPUL NEB PRN (12:38)
[2018-03-15] MEDS ORDERED: MIDAZOLAM 2 MG/2 ML INJ ONE (14:14)
[2018-03-15] MEDS: IPRATROPIUM/ALBUTEROL 0.5-2.5 MG/3 ML AMPUL NEB SCH ×2 (14:32→20:17)
[2018-03-15] MEDS ORDERED: VANCOMYCIN HCL 0 MG in DEXTROSE 5%-WATER 250 ML IV NR (14:45)
[2018-03-15] MEDS ORDERED: BUPIVACAINE HCL 0.5 % INJ/PF 30 ML SDV ONE (14:48)
[2018-03-15] MEDS ORDERED: LIDOCAINE 1% INJ-PF (10 MG/ML) 30 ML SDV ONE (14:48)
--- NOTE | 2018-03-15 14:49 | PDOC PROGRESS REPORT ---
Subjective Subjective:: Patient is breathing better today. No chest pain. She has a dry cough which is chronic. She states that she uses albuterol at home for that. She is not having abdominal pain nausea or vomiting though her appetite is poor. Leg swelling is decreasing. Leg pain is improving. Her strength is improving. No fevers or chills. Reason For Visit: UTI CELLULITIS,ARF MORBID OBESITY Physical Exam Vital Signs: Temp Pulse Resp BP Pulse Ox 99.2 F 89 18 122/53 L 95 03/15/18 11:14 03/15/18 11:14 03/15/18 11:14 03/15/18 11:14 03/15/18 11:14 Intake & Output 03/14/18 03/15/18 03/16/18 06:59 06:59 06:59 Intake Total 2175 1787 650 Output Total 1900 1350 425 Balance 275 437 225 Weight 189.2 kg 189.6 kg General appearance: PRESENT: no acute distress, cooperative, morbidly obese Head exam: PRESENT: atraumatic, normocephalic Eye exam: ABSENT: conjunctival injection, scleral icterus Mouth exam: PRESENT: moist, tongue midline Respiratory exam: PRESENT: decreased breath sounds, unlabored. ABSENT: rales, rhonchi, wheezes Cardiovascular exam: PRESENT: RRR. ABSENT: systolic murmur Pulses: PRESENT: normal radial pulses GI/Abdominal exam: PRESENT: normal bowel sounds, soft. ABSENT: distended, guarding, tenderness Extremities exam: PRESENT: other - Left leg with improving cellulitis. There is however purulent drainage a few spots. Musculoskeletal exam: PRESENT: other - Obese. Neurological exam: PRESENT: alert, awake, oriented to person, oriented to place , oriented to situation, CN II-XII grossly intact Psychiatric exam: PRESENT: appropriate affect. ABSENT: anxious Skin exam: PRESENT: dry, warm Results Laboratory Results: 03/15/18 04:03 03/15/18 04:03 03/15/18 03/15/18 04:03 04:03 WBC 7.5 RBC 3.33 L Hgb 9.4 L Hct 28.9 L MCV 87 MCH 28.1 MCHC 32.4 RDW 17.1 H Plt Count 204 Sodium 141.0 Potassium 4.6 Chloride 102 Carbon Dioxide 30 Anion Gap 9 BUN 38 H Creatinine 1.49 H Est GFR ( Amer) 42 L Est GFR (Non-Af Amer) 34 L Glucose 125 H Calcium 8.8 Impressions: Chest X-Ray 03/12/18 19:42 IMPRESSION: NO ACUTE RADIOGRAPHIC FINDING IN THE CHEST. Tibia/Fibula X-Ray 03/12/18 19:42 IMPRESSION: Medial soft tissue laceration without radiopaque foreign body. No fracture. Renal Ultrasound 03/13/18 00:00 IMPRESSION: No definite sonographic abnormality identified. No definite hydronephrosis. Assessment & Plan - Diagnosis (1) Laceration of left leg Qualifiers: Encounter type: subsequent encounter Qualified Code(s): S81.812D - Laceration without foreign body, left lower leg, subsequent encounter Is this a current diagnosis for this admission?: Yes Plan: Secondary to a fall. Laceration became infected leading to this hospitalization. Cellulitis being treated with cephalosporin. Surgical service following. Due to purulent drainage in several parts of the laceration OR debridement is scheduled for today. The surgeon hopes to be able to place a wound VAC. (2) Cellulitis Qualifiers: Site of cellulitis of extremity: lower extremity Laterality: left Is this a current diagnosis for this admission?: Yes Plan: cellulitis is due to laceration, improving but not resolved. Continue cephalosporin for gram neg rods. Gram-positive cocci in clusters now growing in the wound culture and so I have added vancomycin. (3) Morbid obesity Is this a current diagnosis for this admission?: Yes Plan: Her debility is related to this, she is getting PT and feels that she elie really benefit from a strengthening and safety perspective with continued therapy, will plan to cont either in acute rehab or at home on discharge. (4) UTI (urinary tract infection) Is this a current diagnosis for this admission?: Yes Plan: Growing Klebsiella and urine culture. Continue cefuroxime. (5) Fall Qualifiers: Encounter type: initial encounter Qualified Code(s): W19.XXXA - Unspecified fall, initial encounter Is this a current diagnosis for this admission?: Yes Plan: Multifactorial with obesity weakness debility all playing roles. Will hope to continue an aggressive physical therapy course on discharge (6) Gout Is this a current diagnosis for this admission?: Yes Plan: Stable, continue her medications (7) Chronic pain Is this a current diagnosis for this admission?: Yes Plan: Pain is improving overall. We will continue her current home medications for her chronic pain which includes opioids and Flexeril. - Time Time Spent with patient: 25-34 minutes Medications reviewed and adjusted accordingly: Yes - Inpatient Certification Based on my medical assessment, after consideration of the patient's comorbidities, presenting symptoms, or acuity I expect that the services needed warrant INPATIENT care.: Yes I certify that my determination is in accordance with my understanding of Medicare's requirements for reasonable and necessary INPATIENT services [42 CFR 412.3e].: Yes Medical Necessity: Need for Surgery
[2018-03-15] MEDS ORDERED: DIPHENHYDRAMINE HCL 50 MG/ML VIAL IV PRN (14:53)
[2018-03-15] MEDS ORDERED: OXYCODONE-ACETAMINOPHEN 5-325 MG TABLET ONE (15:58)
[2018-03-15] MEDS ORDERED: IBUPROFEN 800 MG TABLET ONE (15:59)
[2018-03-15] MEDS ORDERED: MORPHINE SULFATE 10 MG/ML INJ ONE (15:59)
[2018-03-15] MEDS ORDERED: OXYCODONE-ACETAMINOPHEN 5-325 MG TABLET PO ONE (17:00)
[2018-03-15] MEDS: VANCOMYCIN HCL 750 MG in DEXTROSE 5%-WATER 250 ML IV SCH (17:38)
[2018-03-15] MEDS: COLCHICINE 0.6 MG TABLET PO SCH (17:39)
[2018-03-15] MEDS: ASPIRIN 81 MG TABLET, CHEWABLE PO SCH (17:40)
[2018-03-15] MEDS: ALLOPURINOL 300 MG TABLET PO SCH (17:40)
[2018-03-15] MEDS: PRAMIPEXOLE DI-HCL 0.5 MG TABLET PO SCH (21:53)
[2018-03-15] MEDS: GABAPENTIN 400 MG CAPSULE PO SCH (21:53)
[2018-03-16] MEDS: IPRATROPIUM/ALBUTEROL 0.5-2.5 MG/3 ML AMPUL NEB SCH ×4 (02:21→19:40)
--- NOTE | 2018-03-16 03:39 | OPERATIVE REPORT E ---
Operative Report NAME: PREM COURTNEY : 1945 AGE: 72Y DATE OF SURGERY: 03/15/18 ROOM: [facility] PREOPERATIVE DIAGNOSIS: Cellulitis of left leg laceration with starting abscess. POSTOPERATIVE DIAGNOSIS: Cellulitis of left leg laceration with starting abscess. OPERATION: Debridement of left leg cellulitis with abscess and placement of wound VAC. SURGEON: TABBY GRAJEDA M.D. ANESTHESIA: Local, MAC. INDICATION: This is a 72-year-old female who lacerated her left leg on her scooter a few days ago. Yesterday the wound was inspected and there was a small amount of pus noted when squeezing around the area. Because of this, the patient was taken to the OR to make sure there is no further collection of pus. DESCRIPTION OF PROCEDURE: The patient was given sedation and the left lower leg was then prepped and draped in the usual sterile fashion. An appropriate time-out was then called. Next, local anesthesia infiltrated along the margins of the laceration. The laceration itself measured about 10 cm long by about 1 to 1.5 cm wide. The wound was then opened and no evidence of significant collection noted. After this, the lacerated cavity was then pulse lavaged with 2 L of saline. Hemostasis was then controlled with the use of cautery along the wound edges. Next, foam was placed inside the wound, which roughly measured at this time about 10 cm wide by about 2-3 cm vertical. A lap sponge was placed into the wound and a transparent dressing that came with the wound VAC was placed over the foam. The mid part of the foam was opened with scissors, cutting about a 5 mm opening. The suction part of the catheter was then placed on top of the foam that was opened and connected to VAC suction. Suction was placed at -125 mmHg pressure. The suction *------* very well. The patient tolerated the procedure well and then brought to recovery room in satisfactory condition. Needle, instrument, and sponge count were all correct and isolated blood loss was about 10 mL. DICTATING PHYSICIAN: ATBBY GRAJEDA M.D. [id number] PHY#: [id number] ID: [id number] JOB#: [id number] ACCT: [id number] cc:TABBY GRAJEDA M.D. >
[2018-03-16] MEDS: CARVEDILOL 3.125 MG TABLET PO SCH ×2 (05:23→18:37)
[2018-03-16] MEDS: HEPARIN SOD (PORCINE) 5,000 UNIT/ML 1 ML SYRINGE SUBCUT SCH ×3 (05:23→22:29)
[2018-03-16] MEDS: OXYCODONE-ACETAMINOPHEN 5-325 MG TABLET PO PRN ×5 (05:24→22:30)
[2018-03-16] MEDS: LEVOTHYROXINE SODIUM 0.05 MG TABLET PO SCH (05:24)
[2018-03-16] MEDS: CEFUROXIME 250 MG TABLET PO SCH ×2 (05:39→18:37)
[2018-03-16] MEDS: VANCOMYCIN HCL 750 MG in DEXTROSE 5%-WATER 250 ML IV SCH ×2 (06:29→18:37)
[2018-03-16 07:07] LABS: HEMATOCRIT 28.8 % (36.0-47.0); HEMOGLOBIN 9.3 g/dL (12.0-15.5); MEAN CORPUSCULAR HGB CONC 32.2 g/dL (32.0-36.0); MEAN CORPUSCULAR VOLUME 87 fl (80-97); PLATELET COUNT 220 10^3/uL (150-450); RED CELL DISTRIBUTION WIDTH 16.9 % (11.5-14.0); WHITE BLOOD COUNT 6.1 10^3/uL (4.0-10.5)
[2018-03-16 07:36] LABS: ANION GAP 8 (5-19); BLOOD UREA NITROGEN 31 mg/dL (7-20); CALCIUM 9.2 mg/dL (8.4-10.2); CARBON DIOXIDE 30 mmol/L (22-30); CHLORIDE 103 mmol/L (98-107); GLUCOSE 166 mg/dL (75-110); POTASSIUM 4.5 mmol/L (3.6-5.0); SODIUM 141.3 mmol/L (137-145)
[2018-03-16] MEDS ORDERED: ONDANSETRON HCL INJ/PF 4 MG/2 ML SDV IV PRN (08:00)
[2018-03-16] MEDS: SUCRALFATE 1 GM TABLET PO SCH ×4 (09:08→22:29)
[2018-03-16] MEDS: CYANOCOBALAMIN (VITAMIN B-12) 1,000 MCG TABLET PO SCH (09:08)
[2018-03-16] MEDS: GABAPENTIN 300 MG CAPSULE PO SCH ×3 (09:09→18:37)
[2018-03-16] MEDS: ERGOCALCIFEROL (VITAMIN D2) 50000 UNIT (1.25 MG) CAPSULE PO SCH (09:09)
[2018-03-16] MEDS: INSULIN LISPRO 100 UNIT/ML 3 ML VIAL SUBCUT PRN ×2 (09:09→22:29)
[2018-03-16] MEDS: FOLIC ACID 1 MG TABLET PO SCH (09:09)
[2018-03-16] MEDS: LACTOBACILLUS ACIDOPHILUS 250 MG TAB PO SCH (09:09)
[2018-03-16] MEDS: FAMOTIDINE 20 MG TABLET PO SCH ×2 (09:09→18:37)
[2018-03-16] MEDS: MULTIVITAMIN TABLET PO SCH (09:09)
[2018-03-16] MEDS: INSULIN LISPRO 100 UNIT/ML 3 ML VIAL SUBCUT SCH ×3 (09:10→16:46)
[2018-03-16] MEDS: ALLOPURINOL 300 MG TABLET PO SCH (14:09)
[2018-03-16] MEDS: ASPIRIN 81 MG TABLET, CHEWABLE PO SCH (14:09)
--- NOTE | 2018-03-16 15:45 | PDOC PROGRESS REPORT ---
Subjective Progress Note for:: 03/16/18 Subjective:: Patient states that her leg is a little bit painful since her debridement and wound VAC placement that she can tolerate it. She was having a hard time standing up with physical therapy but feels that overall she is improving terms of her strength. No chest pain. No difficulty breathing. Her cough is improving. No abdominal pain nausea or vomiting. Appetite is fine. No fevers or chills. Reason For Visit: Left leg cellulitis with abscess Physical Exam Vital Signs: Temp Pulse Resp BP Pulse Ox 98.6 F 79 18 136/63 H 97 03/16/18 07:10 03/16/18 13:38 03/16/18 13:38 03/16/18 07:10 03/16/18 13:38 Intake & Output 03/15/18 03/16/18 03/17/18 06:59 06:59 06:59 Intake Total 1787 5425 Output Total 1350 4580 Balance 437 845 Weight 189.6 kg 189 kg General appearance: PRESENT: no acute distress, morbidly obese Head exam: PRESENT: atraumatic, normocephalic Eye exam: ABSENT: conjunctival injection, scleral icterus Respiratory exam: PRESENT: clear to auscultation janis, unlabored. ABSENT: rales , rhonchi, wheezes Cardiovascular exam: PRESENT: RRR. ABSENT: systolic murmur Pulses: PRESENT: normal radial pulses GI/Abdominal exam: PRESENT: normal bowel sounds, soft. ABSENT: distended, guarding, tenderness Extremities exam: ABSENT: pedal edema Musculoskeletal exam: ABSENT: ambulatory Neurological exam: PRESENT: alert, awake, oriented to person, oriented to place , oriented to situation, CN II-XII grossly intact Psychiatric exam: PRESENT: appropriate affect. ABSENT: anxious Skin exam: PRESENT: other - Bilateral legs have very reduced edema. Her left leg cellulitis is much improved. Wound VAC is in place draining a small amount of serosanguineous material. Results Laboratory Results: 03/16/18 06:42 03/16/18 06:42 03/16/18 03/16/18 06:42 06:42 WBC 6.1 RBC 3.30 L Hgb 9.3 L Hct 28.8 L MCV 87 MCH 28.0 MCHC 32.2 RDW 16.9 H Plt Count 220 Sodium 141.3 Potassium 4.5 Chloride 103 Carbon Dioxide 30 Anion Gap 8 BUN 31 H Creatinine 1.42 H Est GFR ( Amer) 44 L Est GFR (Non-Af Amer) 36 L Glucose 166 H Calcium 9.2 03/14/18 08:28 Leg - Cellulitis Gram Stain - Final Impressions: Chest X-Ray 03/12/18 19:42 IMPRESSION: NO ACUTE RADIOGRAPHIC FINDING IN THE CHEST. Tibia/Fibula X-Ray 03/12/18 19:42 IMPRESSION: Medial soft tissue laceration without radiopaque foreign body. No fracture. Renal Ultrasound 03/13/18 00:00 IMPRESSION: No definite sonographic abnormality identified. No definite hydronephrosis. Assessment & Plan - Diagnosis (1) Laceration of left leg Qualifiers: Encounter type: subsequent encounter Qualified Code(s): S81.812D - Laceration without foreign body, left lower leg, subsequent encounter Is this a current diagnosis for this admission?: Yes Plan: with abscess that has now been debrided by the surgeon. Wound VAC is in place. She is postop day 1. (2) Cellulitis Qualifiers: Site of cellulitis of extremity: lower extremity Laterality: left Is this a current diagnosis for this admission?: Yes Plan: She improved initially with antibiotics but then abscess was found and so patient was taken to the OR yesterday. Status post debridement and wound VAC placement. She remains on antibiotics for urinary tract infection and due to the fact that there is still some surrounding cellulitis. Is a complex wound and she may need more antibiotics for the leg infection but that remains to be seen. Will continue cephalosporin and monitor now that wound VAC is placed and debridement has taken place. She is growing staph aureus from the wound and if the wound worsens we could consider adding an agent to cover staph aureus. (3) Morbid obesity Is this a current diagnosis for this admission?: Yes Plan: Patient is disabled secondary to her morbid obesity. She gets around in a motorized wheelchair. She is able to lift her legs off the bed now with physical therapy. She cannot yet stand. We discussed the importance of weight loss and continuing to work with physical therapy. She is interested in inpatient rehab if she meets criteria. (4) UTI (urinary tract infection) Is this a current diagnosis for this admission?: Yes Plan: Patient is growing Klebsiella in her urine. She is on a cephalosporin to which it is sensitive. Would continue for 7 days. (5) Fall Qualifiers: Encounter type: initial encounter Qualified Code(s): W19.XXXA - Unspecified fall, initial encounter Is this a current diagnosis for this admission?: Yes Plan: Possibly contributed to by her urinary tract infection. Also though she is debilitated and morbidly obese. She needs weight loss and physical therapy. (6) Gout Is this a current diagnosis for this admission?: Yes Plan: Stable. Continue her home gout meds. (7) Chronic pain Is this a current diagnosis for this admission?: Yes Plan: His chronic pain is stable and she is on her home medications. She will let us know if she feels that her left leg pain is not well controlled. I have not added any extra opioids. - Time Time Spent with patient: 35 or more minutes - Inpatient Certification Based on my medical assessment, after consideration of the patient's comorbidities, presenting symptoms, or acuity I expect that the services needed warrant INPATIENT care.: Yes I certify that my determination is in accordance with my understanding of Medicare's requirements for reasonable and necessary INPATIENT services [42 CFR 412.3e].: Yes Medical Necessity: Risk of Complication if Not Cared For in Hospital
[2018-03-16] MEDS: COLCHICINE 0.6 MG TABLET PO SCH (18:36)
[2018-03-16] MEDS: GABAPENTIN 400 MG CAPSULE PO SCH (22:29)
[2018-03-16] MEDS: PRAMIPEXOLE DI-HCL 0.5 MG TABLET PO SCH (22:29)
[2018-03-17] MEDS: IPRATROPIUM/ALBUTEROL 0.5-2.5 MG/3 ML AMPUL NEB SCH ×4 (02:27→20:05)
[2018-03-17] MEDS: OXYCODONE-ACETAMINOPHEN 5-325 MG TABLET PO PRN ×5 (04:32→23:29)
[2018-03-17] MEDS: CARVEDILOL 3.125 MG TABLET PO SCH ×2 (05:51→19:00)
[2018-03-17] MEDS: LEVOTHYROXINE SODIUM 0.05 MG TABLET PO SCH (05:51)
[2018-03-17] MEDS: CEFUROXIME 250 MG TABLET PO SCH ×2 (05:51→19:00)
[2018-03-17] MEDS: HEPARIN SOD (PORCINE) 5,000 UNIT/ML 1 ML SYRINGE SUBCUT SCH ×3 (05:51→22:05)
[2018-03-17] MEDS: VANCOMYCIN HCL 750 MG in DEXTROSE 5%-WATER 250 ML IV SCH ×2 (05:52→19:31)
[2018-03-17 06:22] LABS: VANCOMYCIN,TROUGH 9.1 ug/mL (5.0-20.0)
[2018-03-17] MEDS: FAMOTIDINE 20 MG TABLET PO SCH ×2 (09:02→19:01)
[2018-03-17] MEDS: LACTOBACILLUS ACIDOPHILUS 250 MG TAB PO SCH (09:03)
[2018-03-17] MEDS: GABAPENTIN 300 MG CAPSULE PO SCH ×3 (09:03→19:01)
[2018-03-17] MEDS: CYANOCOBALAMIN (VITAMIN B-12) 1,000 MCG TABLET PO SCH (09:03)
[2018-03-17] MEDS: SUCRALFATE 1 GM TABLET PO SCH ×4 (09:03→22:06)
[2018-03-17] MEDS: MULTIVITAMIN TABLET PO SCH (09:03)
[2018-03-17] MEDS: FOLIC ACID 1 MG TABLET PO SCH (09:03)
[2018-03-17] MEDS: INSULIN LISPRO 100 UNIT/ML 3 ML VIAL SUBCUT SCH ×3 (09:06→19:01)
[2018-03-17] MEDS: INSULIN LISPRO 100 UNIT/ML 3 ML VIAL SUBCUT PRN ×2 (09:08→11:53)
[2018-03-17] MEDS: ASPIRIN 81 MG TABLET, CHEWABLE PO SCH (13:00)
[2018-03-17] MEDS: ALLOPURINOL 300 MG TABLET PO SCH (13:01)
--- NOTE | 2018-03-17 15:35 | PDOC PROGRESS REPORT ---
Subjective Progress Note for:: 03/17/18 Subjective:: Feeling better. However continues to endorse mild pain at site of wound vac. Feels that her strength is improving however willing to work with PT. Tolerating PO. No other complaints. Reason For Visit: UTI CELLULITIS,ARF MORBID OBESITY Physical Exam Vital Signs: Temp Pulse Resp BP Pulse Ox 98.4 F 89 18 127/47 H 97 03/17/18 11:19 03/17/18 14:00 03/17/18 13:53 03/17/18 11:19 03/17/18 13:53 Intake & Output 03/16/18 03/17/18 03/18/18 06:59 06:59 06:59 Intake Total 5425 2733 Output Total 4580 1800 Balance 845 933 Weight 189 kg 186.6 kg General appearance: PRESENT: no acute distress, cooperative, morbidly obese Mouth exam: PRESENT: moist Respiratory exam: PRESENT: unlabored Cardiovascular exam: PRESENT: +S1, +S2. ABSENT: tachycardia GI/Abdominal exam: PRESENT: normal bowel sounds, soft. ABSENT: tenderness Neurological exam: PRESENT: alert, awake, CN II-XII grossly intact Psychiatric exam: PRESENT: appropriate affect Skin exam: PRESENT: other - Chronic skin changes, wound vac in place Results Laboratory Results: 03/16/18 06:42 03/17/18 05:46 03/17/18 05:46 Creatinine 1.27 H Est GFR ( Amer) 50 L Est GFR (Non-Af Amer) 41 L 03/14/18 08:28 Leg - Cellulitis Gram Stain - Final 03/14/18 08:28 Leg - Cellulitis Wound Culture - Final Staphylococcus Aureus Enterobacter Cloacae Enterococcus Faecalis(Group D) Impressions: Chest X-Ray 03/12/18 19:42 IMPRESSION: NO ACUTE RADIOGRAPHIC FINDING IN THE CHEST. Tibia/Fibula X-Ray 03/12/18 19:42 IMPRESSION: Medial soft tissue laceration without radiopaque foreign body. No fracture. Renal Ultrasound 03/13/18 00:00 IMPRESSION: No definite sonographic abnormality identified. No definite hydronephrosis. Assessment & Plan - Diagnosis (2) Cellulitis Qualifiers: Site of cellulitis of extremity: lower extremity Laterality: left Is this a current diagnosis for this admission?: Yes Plan: Abscess s/p debridement and wound vac placement POD #2. Tolerating well. Blood culture NGTD at 4 days. Would cx with multiple organisms identified including Staph Aures, Enterobacter, and Group D Enterococcus - Wound vac remains in place, defer to surgical team for optimal timing of removal - Cellulitis has improved - Continue Vanc and Ceftin for now; given rapid improvement, Vanc may be discontinued in next 1-2 days. (3) Morbid obesity Is this a current diagnosis for this admission?: Yes Plan: Disabled secondary to her morbid obesity. She gets around in a motorized wheelchair. She is able to lift her legs off the bed now with physical therapy. She cannot yet stand. - emphasized importance of weight loss - Agreeable to PT consult, ordered placed on 03/17 - Rehab consideration if she meets criteria, social work consulted (4) UTI (urinary tract infection) Is this a current diagnosis for this admission?: Yes Plan: Urine culture growing >100,000 Klebsiella - Sensitive to Ceftin, would treat for 1 week - Time Time Spent with patient: Less than 15 minutes Anticipated discharge: SNF Within: within 48 hours
--- NOTE | 2018-03-17 17:47 | Progress Note ---
Provider Note Provider Note: ID Consult Note Asked to review chart by Pharmacy. Pt not seen or examined. Reviewed VS, labs, provider reports, imaging reports. Ms. Hodge is a 72 year old woman with PMH including diabetes, venous stasis, and morbid obesity who was admitted on 03/13/18 for LLE cellulitis and wound infection. She presented to the ED 3 days prior for traumatic laceration to the leg after falling off her scooter. On presentation she had no fever. She had increased LLE erythema, edema, pain and drainage from the leg wound. She also admitted to dysuria. Her initial labs were notable for MIRI and leukocytosis to 13.5k. Blood cultures showed no growth. Urine culture grew >100k cfu Klebsiella pneumoniae intermediate to nitrofurantoin and resistant to ampicillin, but otherwise sensitive to all other antibiotics tested. She was treated empirically with Rocephin from 03/13-03/14 then changed to PO Ceftin on 03/14, which has continued to present. On 03/14/18, as there was a small amount of expressible pus from the wound, a culture was sent. Gram stain showed 4+ GPCs on Gram stain with few GNRs, culture yielded growth of 4+ MSSA, 1+ Enterobacter cloacae, and 3 + Enterococcus faecalis. The Enterobacter isolate was reported resistant to amoxicillin/clavulanate, cefazolin, and cefuroxime but sensitive to 3rd generation cephalosporins. The Enterococcus isolate was reported ampicillin sensitive. On 03/15, pt was taken to the OR for washout for suspicion of early abscess formation and VAC placement. On 03/15, vancomycin IV was added to the PO Ceftin. Per most recent notes, pt is described as having "rapid improvement." Impression/Recommendations 1. UTI, complicated - symptomatic on presentation, UCx showed growth of Klebsiella sensitive to the antibiotics that the patient has received up to this point (Rocephin, then Ceftin) - agree with plans for pt to complete a total of 7 days; currently on day 5 of 7 2. LLE wound infection with cellulitis - Cx from 03/14: polymicrobial growth with MSSA, Enterococcus, Enterobacter. - With the patient's morbid obesity and allergies to Bactrim and Cipro, an antibiotic regimen using only oral agents is difficult. IV Zosyn would address all of the isolates that grew in culture. Recommend discontinuing IV vancomycin and PO Ceftin and starting IV Zosyn instead to finish treatment for both her UTI and her leg infection. Zosyn would need to be given at a higher dose given her morbid obesity (4.5 g q8h IV, given as an extended infusion over 4h). - Duration of therapy can be anywhere in the range of 7-14 days in general but should be guided by how the patient is doing, whether there was adequate source control, etc. Recommend treating the patient for the shorter end of this range considering that she had debridement and has already shown marked improvement according to provider notes. If signs of inflammation and infection have resolved by the time she would otherwise be ready for discharge home, I would recommend stopping Zosyn and would not recommend placing a PICC line solely to fulfill an arbitrary duration of therapy of 7 days of therapy with IV Zosyn. Duration of therapy should be guided primarily by clinical response. Raul Mcbride MD [facility], pager [phone]
[2018-03-17] MEDS: COLCHICINE 0.6 MG TABLET PO SCH (19:00)
[2018-03-17] MEDS: GABAPENTIN 400 MG CAPSULE PO SCH (22:06)
[2018-03-17] MEDS: PRAMIPEXOLE DI-HCL 0.5 MG TABLET PO SCH (22:06)
[2018-03-18] MEDS: IPRATROPIUM/ALBUTEROL 0.5-2.5 MG/3 ML AMPUL NEB SCH ×5 (02:05→20:46)
[2018-03-18] MEDS: OXYCODONE-ACETAMINOPHEN 5-325 MG TABLET PO PRN ×5 (03:45→19:35)
[2018-03-18] MEDS: VANCOMYCIN HCL 750 MG in DEXTROSE 5%-WATER 250 ML IV SCH (05:24)
[2018-03-18] MEDS: LEVOTHYROXINE SODIUM 0.05 MG TABLET PO SCH (05:25)
[2018-03-18] MEDS: HEPARIN SOD (PORCINE) 5,000 UNIT/ML 1 ML SYRINGE SUBCUT SCH ×3 (05:25→22:07)
[2018-03-18] MEDS: CEFUROXIME 250 MG TABLET PO SCH (05:25)
[2018-03-18] MEDS: CARVEDILOL 3.125 MG TABLET PO SCH ×2 (05:25→18:52)
[2018-03-18] MEDS: SUCRALFATE 1 GM TABLET PO SCH ×4 (07:44→22:07)
[2018-03-18] MEDS: FOLIC ACID 1 MG TABLET PO SCH (10:38)
[2018-03-18] MEDS: LACTOBACILLUS ACIDOPHILUS 250 MG TAB PO SCH (10:38)
[2018-03-18] MEDS: GABAPENTIN 300 MG CAPSULE PO SCH ×3 (10:38→18:52)
[2018-03-18] MEDS: MULTIVITAMIN TABLET PO SCH (10:38)
[2018-03-18] MEDS: CYANOCOBALAMIN (VITAMIN B-12) 1,000 MCG TABLET PO SCH (10:38)
[2018-03-18] MEDS: INSULIN LISPRO 100 UNIT/ML 3 ML VIAL SUBCUT SCH ×3 (10:39→18:57)
[2018-03-18] MEDS: FAMOTIDINE 20 MG TABLET PO SCH ×2 (10:39→18:52)
[2018-03-18] MEDS: INSULIN LISPRO 100 UNIT/ML 3 ML VIAL SUBCUT PRN ×4 (10:40→22:07)
[2018-03-18] MEDS: ASPIRIN 81 MG TABLET, CHEWABLE PO SCH (13:43)
[2018-03-18] MEDS: ALLOPURINOL 300 MG TABLET PO SCH (13:43)
--- NOTE | 2018-03-18 14:21 | PDOC PROGRESS REPORT ---
Subjective Progress Note for:: 03/18/18 Subjective:: No new complaints. Reason For Visit: UTI CELLULITIS,ARF MORBID OBESITY Physical Exam Vital Signs: Temp Pulse Resp BP Pulse Ox 98.3 F 84 18 101/52 L 96 03/18/18 11:46 03/18/18 13:58 03/18/18 13:58 03/18/18 11:46 03/18/18 13:58 Intake & Output 03/17/18 03/18/18 03/19/18 05:59 05:59 05:59 Intake Total 3113 1202 Output Total 1999 500 Balance 1113 702 Weight 411 lb 6.121 oz 410 lb 15.066 oz General appearance: PRESENT: no acute distress, morbidly obese Respiratory exam: PRESENT: clear to auscultation janis Cardiovascular exam: PRESENT: RRR GI/Abdominal exam: PRESENT: soft Extremities exam: PRESENT: other - Wound VAC in place on left calf Neurological exam: PRESENT: alert Psychiatric exam: PRESENT: appropriate affect Skin exam: PRESENT: warm Results Laboratory Results: 03/16/18 06:42 03/17/18 05:46 Impressions: Chest X-Ray 03/12/18 19:42 IMPRESSION: NO ACUTE RADIOGRAPHIC FINDING IN THE CHEST. Tibia/Fibula X-Ray 03/12/18 19:42 IMPRESSION: Medial soft tissue laceration without radiopaque foreign body. No fracture. Renal Ultrasound 03/13/18 00:00 IMPRESSION: No definite sonographic abnormality identified. No definite hydronephrosis. Assessment & Plan - Diagnosis (1) Cellulitis Qualifiers: Site of cellulitis of extremity: lower extremity Laterality: left Is this a current diagnosis for this admission?: Yes Plan: Wound VAC per surgery. Antibiotics will be adjusted per ID recommendations. (2) Chronic pain Is this a current diagnosis for this admission?: Yes (3) Chronic venous stasis Is this a current diagnosis for this admission?: Yes (4) Diabetes Qualifiers: Diabetes mellitus type: type 2 Is this a current diagnosis for this admission?: Yes Plan: Continue to monitor and cover with sliding scale insulin. (5) Morbid obesity Is this a current diagnosis for this admission?: Yes (6) Obstructive sleep apnea Is this a current diagnosis for this admission?: Yes (7) Physical deconditioning Is this a current diagnosis for this admission?: Yes Plan: She will need to go to rehab before going home. Her is in very marginal health as well. (8) UTI (urinary tract infection) Is this a current diagnosis for this admission?: Yes
[2018-03-18] MEDS: COLCHICINE 0.6 MG TABLET PO SCH (18:49)
[2018-03-18] MEDS: PIPERACILLIN SODIUM/TAZOBACTAM 4.5 GM in NORMAL SALINE 100 ML IV SCH (18:53)
[2018-03-18] MEDS: GABAPENTIN 400 MG CAPSULE PO SCH (22:07)
[2018-03-18] MEDS: PRAMIPEXOLE DI-HCL 0.5 MG TABLET PO SCH (22:08)
[2018-03-19] MEDS: PIPERACILLIN SODIUM/TAZOBACTAM 4.5 GM in NORMAL SALINE 100 ML IV SCH ×3 (01:49→17:33)
[2018-03-19] MEDS: OXYCODONE-ACETAMINOPHEN 5-325 MG TABLET PO PRN ×5 (01:50→22:24)
[2018-03-19] MEDS: IPRATROPIUM/ALBUTEROL 0.5-2.5 MG/3 ML AMPUL NEB SCH ×4 (02:24→20:15)
[2018-03-19 05:27] LABS: ABSOLUTE EOSINOPHILS # (AUTO) 0.2 10^3/uL (0.0-0.6); ABSOLUTE LYMPHOCYTES (AUTO) 0.7 10^3/uL (0.5-4.7); ABSOLUTE MONOCYTES (AUTO) 0.3 10^3/uL (0.1-1.4); ABSOLUTE NEUT (AUTO) 6.1 10^3/uL (1.7-8.2); BASOPHILS % (AUTO) 0.3 % (0-2); HEMATOCRIT 29.9 % (36.0-47.0); HEMOGLOBIN 9.7 g/dL (12.0-15.5); MEAN CORPUSCULAR HEMOGLOBIN 27.9 pg (27.0-33.4); MEAN CORPUSCULAR HGB CONC 32.3 g/dL (32.0-36.0); MEAN CORPUSCULAR VOLUME 86 fl (80-97); MONOCYTES % (AUTO) 4.4 % (3-13); PLATELET COUNT 210 10^3/uL (150-450); RED BLOOD COUNT 3.47 10^6/uL (3.72-5.28); RED CELL DISTRIBUTION WIDTH 17.2 % (11.5-14.0); SEGMENTED NEUTROPHILS % (AUTO) 83.3 % (42-78); TOTAL CELLS COUNTED % (AUTO) 100 %; WHITE BLOOD COUNT 7.4 10^3/uL (4.0-10.5)
[2018-03-19] MEDS: LEVOTHYROXINE SODIUM 0.05 MG TABLET PO SCH (05:45)
[2018-03-19] MEDS: CARVEDILOL 3.125 MG TABLET PO SCH ×2 (05:45→17:33)
[2018-03-19] MEDS: HEPARIN SOD (PORCINE) 5,000 UNIT/ML 1 ML SYRINGE SUBCUT SCH ×3 (05:45→22:17)
[2018-03-19 06:02] LABS: ALBUMIN 2.7 g/dL (3.5-5.0); ANION GAP 6 (5-19); BLOOD UREA NITROGEN 15 mg/dL (7-20); CALCIUM 9.2 mg/dL (8.4-10.2); CARBON DIOXIDE 30 mmol/L (22-30); CHLORIDE 103 mmol/L (98-107); GLUCOSE 142 mg/dL (75-110); PHOSPHORUS 3.3 mg/dL (2.5-4.5); POTASSIUM 4.2 mmol/L (3.6-5.0); SODIUM 139.4 mmol/L (137-145)
[2018-03-19] MEDS: SUCRALFATE 1 GM TABLET PO SCH ×4 (08:31→22:24)
[2018-03-19] MEDS: INSULIN LISPRO 100 UNIT/ML 3 ML VIAL SUBCUT SCH ×3 (08:35→17:30)
[2018-03-19] MEDS: GABAPENTIN 300 MG CAPSULE PO SCH ×3 (10:54→17:30)
[2018-03-19] MEDS: MULTIVITAMIN TABLET PO SCH (10:54)
[2018-03-19] MEDS: MAGNESIUM OXIDE 400 MG TABLET PO SCH ×2 (10:55→17:30)
[2018-03-19] MEDS: FOLIC ACID 1 MG TABLET PO SCH (10:55)
[2018-03-19] MEDS: LACTOBACILLUS ACIDOPHILUS 250 MG TAB PO SCH (10:55)
[2018-03-19] MEDS: FAMOTIDINE 20 MG TABLET PO SCH ×2 (10:56→17:29)
[2018-03-19] MEDS: CYANOCOBALAMIN (VITAMIN B-12) 1,000 MCG TABLET PO SCH (10:56)
[2018-03-19] MEDS: ASPIRIN 81 MG TABLET, CHEWABLE PO SCH (17:29)
[2018-03-19] MEDS: COLCHICINE 0.6 MG TABLET PO SCH (17:29)
[2018-03-19] MEDS: ALLOPURINOL 300 MG TABLET PO SCH (17:29)
--- NOTE | 2018-03-19 17:54 | PDOC PROGRESS REPORT ---
Subjective Progress Note for:: 03/19/18 Subjective:: No new complaints. Reason For Visit: UTI CELLULITIS,ARF MORBID OBESITY Physical Exam Vital Signs: Temp Pulse Resp BP Pulse Ox 98.3 F 96 18 117/48 L 96 03/19/18 16:00 03/19/18 16:00 03/19/18 16:00 03/19/18 16:00 03/19/18 16:00 Intake & Output 03/18/18 03/19/18 03/20/18 05:59 05:59 05:59 Intake Total 1202 2020 120 Output Total 500 850 600 Balance 702 1170 -480 Weight 410 lb 15.066 oz 410 lb 0.957 oz General appearance: PRESENT: no acute distress, morbidly obese Cardiovascular exam: PRESENT: RRR GI/Abdominal exam: PRESENT: soft Extremities exam: PRESENT: other - Difficult to assess because of her habitus. She does have some pitting of her distal lower extremities. Neurological exam: PRESENT: alert, CN II-XII grossly intact. ABSENT: motor sensory deficit Psychiatric exam: PRESENT: appropriate affect Skin exam: PRESENT: warm Results Laboratory Results: 03/19/18 04:46 03/19/18 04:46 03/19/18 03/19/18 04:46 04:46 WBC 7.4 RBC 3.47 L Hgb 9.7 L Hct 29.9 L MCV 86 MCH 27.9 MCHC 32.3 RDW 17.2 H Plt Count 210 Seg Neutrophils % 83.3 H Lymphocytes % 9.0 L Monocytes % 4.4 Eosinophils % 3.0 Basophils % 0.3 Absolute Neutrophils 6.1 Absolute Lymphocytes 0.7 Absolute Monocytes 0.3 Absolute Eosinophils 0.2 Absolute Basophils 0.0 Sodium 139.4 Potassium 4.2 Chloride 103 Carbon Dioxide 30 Anion Gap 6 BUN 15 Creatinine 1.10 Est GFR ( Amer) 59 L Est GFR (Non-Af Amer) 49 L Glucose 142 H Calcium 9.2 Phosphorus 3.3 Magnesium 1.5 L Albumin 2.7 L 03/19/18 04:46 NT-Pro-B Natriuret Pep 825 Impressions: Chest X-Ray 03/12/18 19:42 IMPRESSION: NO ACUTE RADIOGRAPHIC FINDING IN THE CHEST. Tibia/Fibula X-Ray 03/12/18 19:42 IMPRESSION: Medial soft tissue laceration without radiopaque foreign body. No fracture. Renal Ultrasound 03/13/18 00:00 IMPRESSION: No definite sonographic abnormality identified. No definite hydronephrosis. Assessment & Plan - Diagnosis (1) Cellulitis Qualifiers: Site of cellulitis of extremity: lower extremity Laterality: left Is this a current diagnosis for this admission?: Yes Plan: Wound VAC per surgery. Continue antibiotics per ID recommendations. (2) Chronic pain Is this a current diagnosis for this admission?: Yes (3) Chronic venous stasis Is this a current diagnosis for this admission?: Yes (4) Diabetes Qualifiers: Diabetes mellitus type: type 2 Is this a current diagnosis for this admission?: Yes Plan: Continue to monitor and cover with sliding scale insulin. (5) Morbid obesity Is this a current diagnosis for this admission?: Yes (6) Obstructive sleep apnea Is this a current diagnosis for this admission?: Yes (7) Physical deconditioning Is this a current diagnosis for this admission?: Yes Plan: She will need to go to rehab before going home. Her is in very marginal health as well. (8) UTI (urinary tract infection) Is this a current diagnosis for this admission?: Yes Plan: Antibiotics for her cellulitis will also cover this.
[2018-03-19] MEDS ORDERED: FUROSEMIDE INJ/PF 40 MG/4 ML SDV IV ONE ×2 (18:45→22:00)
[2018-03-19] MEDS: GABAPENTIN 400 MG CAPSULE PO SCH (22:17)
[2018-03-19] MEDS: PRAMIPEXOLE DI-HCL 0.5 MG TABLET PO SCH (22:24)
[2018-03-20] MEDS: IPRATROPIUM/ALBUTEROL 0.5-2.5 MG/3 ML AMPUL NEB SCH ×4 (01:24→20:21)
[2018-03-20] MEDS: PIPERACILLIN SODIUM/TAZOBACTAM 4.5 GM in NORMAL SALINE 100 ML IV SCH ×3 (02:08→17:57)
[2018-03-20] MEDS: OXYCODONE-ACETAMINOPHEN 5-325 MG TABLET PO PRN ×5 (03:55→23:26)
[2018-03-20] MEDS: LEVOTHYROXINE SODIUM 0.05 MG TABLET PO SCH (06:34)
[2018-03-20] MEDS: HEPARIN SOD (PORCINE) 5,000 UNIT/ML 1 ML SYRINGE SUBCUT SCH ×3 (06:34→21:53)
[2018-03-20] MEDS: CARVEDILOL 3.125 MG TABLET PO SCH ×2 (06:34→17:34)
[2018-03-20 06:54] LABS: ANION GAP 8 (5-19); BLOOD UREA NITROGEN 15 mg/dL (7-20); CALCIUM 9.1 mg/dL (8.4-10.2); CARBON DIOXIDE 31 mmol/L (22-30); CHLORIDE 102 mmol/L (98-107); GLUCOSE 126 mg/dL (75-110); PHOSPHORUS 3.5 mg/dL (2.5-4.5); POTASSIUM 3.9 mmol/L (3.6-5.0)
[2018-03-20] MEDS: MULTIVITAMIN TABLET PO SCH (08:15)
[2018-03-20] MEDS: INSULIN LISPRO 100 UNIT/ML 3 ML VIAL SUBCUT SCH ×3 (08:15→17:40)
[2018-03-20] MEDS: SUCRALFATE 1 GM TABLET PO SCH ×4 (08:15→21:53)
[2018-03-20] MEDS: GABAPENTIN 300 MG CAPSULE PO SCH ×3 (09:00→17:34)
[2018-03-20] MEDS: FOLIC ACID 1 MG TABLET PO SCH (11:00)
[2018-03-20] MEDS: CYANOCOBALAMIN (VITAMIN B-12) 1,000 MCG TABLET PO SCH (11:00)
[2018-03-20] MEDS: FAMOTIDINE 20 MG TABLET PO SCH ×2 (11:00→17:34)
[2018-03-20] MEDS: ERGOCALCIFEROL (VITAMIN D2) 50000 UNIT (1.25 MG) CAPSULE PO SCH (11:00)
[2018-03-20] MEDS: MAGNESIUM OXIDE 400 MG TABLET PO SCH ×2 (11:00→17:35)
[2018-03-20] MEDS: INSULIN LISPRO 100 UNIT/ML 3 ML VIAL SUBCUT PRN ×2 (12:40→17:40)
[2018-03-20] MEDS: METOLAZONE 5 MG TABLET PO SCH (13:40)
[2018-03-20] MEDS: ALLOPURINOL 300 MG TABLET PO SCH (14:20)
[2018-03-20] MEDS: ASPIRIN 81 MG TABLET, CHEWABLE PO SCH (14:20)
--- NOTE | 2018-03-20 15:33 | PDOC PROGRESS REPORT ---
Subjective Progress Note for:: 03/20/18 Subjective:: No new complaints. Reason For Visit: UTI CELLULITIS,ARF MORBID OBESITY Physical Exam Vital Signs: Temp Pulse Resp BP Pulse Ox 98.3 F 119 H 16 133/63 H 91 L 03/20/18 07:56 03/20/18 14:00 03/20/18 13:40 03/20/18 07:56 03/20/18 07:56 Intake & Output 03/19/18 03/20/18 03/21/18 05:59 05:59 05:59 Intake Total 2019 3394 900 Output Total 850 900 860 Balance 1170 2494 40 Weight 410 lb 15.066 oz 410 lb 0.957 oz 410 lb 0.957 oz General appearance: PRESENT: no acute distress, cooperative, morbidly obese Respiratory exam: PRESENT: clear to auscultation janis Cardiovascular exam: PRESENT: RRR GI/Abdominal exam: PRESENT: soft Extremities exam: PRESENT: other - Bilateral chronic woody edema below the knees Neurological exam: PRESENT: alert Psychiatric exam: PRESENT: appropriate affect Skin exam: PRESENT: warm, other - Wound VAC in place on left leg. Surrounding tissue appears free of erythema. It is nontender Results Laboratory Results: 03/19/18 04:46 03/20/18 05:23 03/20/18 05:23 Sodium 141.0 Potassium 3.9 Chloride 102 Carbon Dioxide 31 H Anion Gap 8 BUN 15 Creatinine 1.32 H Est GFR ( Amer) 48 L Est GFR (Non-Af Amer) 40 L Glucose 126 H Calcium 9.1 Phosphorus 3.5 Magnesium 1.5 L Albumin 3.0 L 03/19/18 03/20/18 04:46 05:23 NT-Pro-B Natriuret Pep 825 831 Impressions: Chest X-Ray 03/12/18 19:42 IMPRESSION: NO ACUTE RADIOGRAPHIC FINDING IN THE CHEST. Tibia/Fibula X-Ray 03/12/18 19:42 IMPRESSION: Medial soft tissue laceration without radiopaque foreign body. No fracture. Renal Ultrasound 03/13/18 00:00 IMPRESSION: No definite sonographic abnormality identified. No definite hydronephrosis. Assessment & Plan - Diagnosis (1) Cellulitis Qualifiers: Site of cellulitis of extremity: lower extremity Laterality: left Is this a current diagnosis for this admission?: Yes Plan: Wound VAC per surgery. Continue antibiotics per ID recommendations through the weekend. (2) Chronic pain Is this a current diagnosis for this admission?: Yes (3) Chronic venous stasis Is this a current diagnosis for this admission?: Yes (4) Diabetes Qualifiers: Diabetes mellitus type: type 2 Is this a current diagnosis for this admission?: Yes Plan: Stable on current medications. Continue to monitor and cover with sliding scale insulin. (5) Morbid obesity Is this a current diagnosis for this admission?: Yes (6) Obstructive sleep apnea Is this a current diagnosis for this admission?: Yes (7) Physical deconditioning Is this a current diagnosis for this admission?: Yes Plan: She will need to go to rehab before going home. Her is in very marginal health as well. Discharge planning in progress (8) UTI (urinary tract infection) Is this a current diagnosis for this admission?: Yes Plan: Antibiotics for her cellulitis will also cover this.
[2018-03-20] MEDS: COLCHICINE 0.6 MG TABLET PO SCH (17:34)
[2018-03-20] MEDS: PRAMIPEXOLE DI-HCL 0.5 MG TABLET PO SCH (21:53)
[2018-03-20] MEDS: GABAPENTIN 400 MG CAPSULE PO SCH (21:53)
[2018-03-21] MEDS: IPRATROPIUM/ALBUTEROL 0.5-2.5 MG/3 ML AMPUL NEB SCH ×4 (02:08→19:49)
[2018-03-21] MEDS: PIPERACILLIN SODIUM/TAZOBACTAM 4.5 GM in NORMAL SALINE 100 ML IV SCH ×3 (02:57→17:31)
[2018-03-21] MEDS: LEVOTHYROXINE SODIUM 0.05 MG TABLET PO SCH (06:15)
[2018-03-21] MEDS: OXYCODONE-ACETAMINOPHEN 5-325 MG TABLET PO PRN ×4 (06:15→20:19)
[2018-03-21] MEDS: CARVEDILOL 3.125 MG TABLET PO SCH ×2 (06:15→17:32)
[2018-03-21] MEDS: HEPARIN SOD (PORCINE) 5,000 UNIT/ML 1 ML SYRINGE SUBCUT SCH ×3 (06:15→21:57)
[2018-03-21] MEDS: INSULIN LISPRO 100 UNIT/ML 3 ML VIAL SUBCUT SCH ×3 (07:37→17:30)
[2018-03-21] MEDS: SUCRALFATE 1 GM TABLET PO SCH ×4 (07:37→21:57)
[2018-03-21 08:12] LABS: ALBUMIN 3.1 g/dL (3.5-5.0); ANION GAP 12 (5-19); BLOOD UREA NITROGEN 17 mg/dL (7-20); CALCIUM 9.2 mg/dL (8.4-10.2); CARBON DIOXIDE 32 mmol/L (22-30); CHLORIDE 98 mmol/L (98-107); GLUCOSE 139 mg/dL (75-110); PHOSPHORUS 3.8 mg/dL (2.5-4.5); POTASSIUM 3.7 mmol/L (3.6-5.0); SODIUM 141.9 mmol/L (137-145)
[2018-03-21] MEDS: GABAPENTIN 300 MG CAPSULE PO SCH ×3 (10:28→17:31)
[2018-03-21] MEDS: FAMOTIDINE 20 MG TABLET PO SCH ×2 (10:28→17:31)
[2018-03-21] MEDS: CYANOCOBALAMIN (VITAMIN B-12) 1,000 MCG TABLET PO SCH (10:28)
[2018-03-21] MEDS: FOLIC ACID 1 MG TABLET PO SCH (10:28)
[2018-03-21] MEDS: MAGNESIUM OXIDE 400 MG TABLET PO SCH ×2 (10:28→17:31)
[2018-03-21] MEDS: MULTIVITAMIN TABLET PO SCH (10:29)
[2018-03-21] MEDS: METOLAZONE 5 MG TABLET PO SCH (11:46)
[2018-03-21] MEDS: ASPIRIN 81 MG TABLET, CHEWABLE PO SCH (14:24)
[2018-03-21] MEDS: ALLOPURINOL 300 MG TABLET PO SCH (14:24)
--- NOTE | 2018-03-21 15:09 | PROGRESS NOTE E ---
Progress Note NAME: PREM COURTNEY : 1945 AGE: 72Y DATE: 03/21/2018 ROOM: 426 SUBJECTIVE: The patient is a pleasant 72-year-old female who has a past medical history of diabetes, morbid obesity, *------* and acute cellulitis. Started on IV antibiotics, improving, and she is waiting for rehab placement. OBJECTIVE: GENERAL: The patient is lying in bed, comfortable, not in distress. VITAL SIGNS: Temperature 97.9, heart rate is 104, blood pressure 146/71, saturation 94% on room air. HEENT: Head normocephalic, atraumatic. Pupils round, reactive to light and accommodation bilaterally. Extraocular movements intact. Ears: Tympanic membranes intact bilaterally. No discharge from the ear. No discharge from the nose. NECK: Supple, no increased JVD, no thyromegaly, no lymphadenopathy. CARDIOVASCULAR: Normal S1, S2. Regular rate and rhythm. No murmur, no gallops. RESPIRATORY: Lungs clear. ABDOMEN: Soft. MUSCULOSKELETAL: No edema. NEUROLOGIC: Awake, alert. SKIN: No rash. LABORATORY DATA: White blood count is 7.4, hemoglobin 9.7, hematocrit 30. Creatinine is 1.3, sodium 141. ASSESSMENT: 1. CELLULITIS OF THE LOWER EXTREMITIES. 2. CHRONIC PAIN. 3. CHRONIC VENOUS STASIS. 4. DIABETES. 5. MORBID OBESITY. 6. URINARY TRACT INFECTIONS. PLAN: 1. Continue antibiotics. 2. Continue metolazone. 3. Medical necessity, the patient waiting for rehab placement. DICTATING PHYSICIAN: FRANCISCO LUCIANO M.D. [id number] PHY#: [id number] ID: [id number] JOB#: [id number] ACCT: [id number] cc: >
[2018-03-21] MEDS: COLCHICINE 0.6 MG TABLET PO SCH (17:31)
[2018-03-21] MEDS: NYSTATIN TOPICAL POWDER 15 GM TP SCH (17:32)
[2018-03-21] MEDS: GABAPENTIN 400 MG CAPSULE PO SCH (21:57)
[2018-03-21] MEDS: PRAMIPEXOLE DI-HCL 0.5 MG TABLET PO SCH (21:57)
[2018-03-22] MEDS: IPRATROPIUM/ALBUTEROL 0.5-2.5 MG/3 ML AMPUL NEB SCH ×4 (03:01→19:40)
[2018-03-22] MEDS: PIPERACILLIN SODIUM/TAZOBACTAM 4.5 GM in NORMAL SALINE 100 ML IV SCH ×3 (03:41→17:26)
[2018-03-22 05:01] LABS: ABSOLUTE EOSINOPHILS # (AUTO) 0.2 10^3/uL (0.0-0.6); ABSOLUTE LYMPHOCYTES (AUTO) 1.1 10^3/uL (0.5-4.7); ABSOLUTE MONOCYTES (AUTO) 0.5 10^3/uL (0.1-1.4); ABSOLUTE NEUT (AUTO) 5.1 10^3/uL (1.7-8.2); BASOPHILS % (AUTO) 0.6 % (0-2); EOSINOPHILS % (AUTO) 3.3 % (0-6); HEMATOCRIT 30.2 % (36.0-47.0); HEMOGLOBIN 9.9 g/dL (12.0-15.5); LYMPHOCYTES % (AUTO) 16.1 % (13-45); MEAN CORPUSCULAR VOLUME 85 fl (80-97); PLATELET COUNT 174 10^3/uL (150-450); RED BLOOD COUNT 3.55 10^6/uL (3.72-5.28); RED CELL DISTRIBUTION WIDTH 17.4 % (11.5-14.0); TOTAL CELLS COUNTED % (AUTO) 100 %
[2018-03-22 05:26] LABS: ANION GAP 10 (5-19); BLOOD UREA NITROGEN 17 mg/dL (7-20); CALCIUM 9.1 mg/dL (8.4-10.2); CARBON DIOXIDE 34 mmol/L (22-30); CHLORIDE 98 mmol/L (98-107); GLUCOSE 126 mg/dL (75-110); PHOSPHORUS 4.2 mg/dL (2.5-4.5); POTASSIUM 3.8 mmol/L (3.6-5.0); SODIUM 141.8 mmol/L (137-145)
[2018-03-22] MEDS: LEVOTHYROXINE SODIUM 0.05 MG TABLET PO SCH (05:52)
[2018-03-22] MEDS: HEPARIN SOD (PORCINE) 5,000 UNIT/ML 1 ML SYRINGE SUBCUT SCH ×3 (05:52→21:50)
[2018-03-22] MEDS: CARVEDILOL 3.125 MG TABLET PO SCH ×2 (05:52→17:27)
[2018-03-22] MEDS: OXYCODONE-ACETAMINOPHEN 5-325 MG TABLET PO PRN ×4 (05:52→21:50)
[2018-03-22] MEDS: INSULIN LISPRO 100 UNIT/ML 3 ML VIAL SUBCUT SCH ×3 (07:43→16:05)
[2018-03-22] MEDS: SUCRALFATE 1 GM TABLET PO SCH ×4 (07:43→21:50)
[2018-03-22] MEDS: GABAPENTIN 300 MG CAPSULE PO SCH ×3 (09:26→17:26)
[2018-03-22] MEDS: FAMOTIDINE 20 MG TABLET PO SCH ×2 (09:26→17:26)
[2018-03-22] MEDS: MULTIVITAMIN TABLET PO SCH (09:26)
[2018-03-22] MEDS: MAGNESIUM OXIDE 400 MG TABLET PO SCH ×2 (09:26→17:26)
[2018-03-22] MEDS: CYANOCOBALAMIN (VITAMIN B-12) 1,000 MCG TABLET PO SCH (09:27)
[2018-03-22] MEDS: FOLIC ACID 1 MG TABLET PO SCH (09:27)
[2018-03-22] MEDS: NYSTATIN TOPICAL POWDER 15 GM TP SCH ×2 (09:28→17:26)
[2018-03-22] MEDS: METOLAZONE 5 MG TABLET PO SCH (12:03)
[2018-03-22] MEDS: ALLOPURINOL 300 MG TABLET PO SCH (13:39)
[2018-03-22] MEDS: ASPIRIN 81 MG TABLET, CHEWABLE PO SCH (13:39)
--- NOTE | 2018-03-22 14:05 | PROGRESS NOTE E ---
Progress Note NAME: PREM COURTNEY : 1945 AGE: 72Y DATE: 03/22/2018 ROOM: 426 SUBJECTIVE: The patient is a pleasant 72-year-old female with past medical history significant for diabetes, morbid obesity, cellulitis. She has a wound V.A.C. also. The patient is on IV antibiotics and waiting for rehab placement. OBJECTIVE: GENERAL: Patient lying in bed, comfortable, not in distress. VITAL SIGNS: Blood pressure 116/58, heart rate 85, temperature 98, respiratory rate 20, saturation 91% on room air. HEENT: Normocephalic, atraumatic. Pupils equal, round, reactive to light and accommodation bilaterally. Extraocular movements intact. Ears: Tympanic membranes intact bilaterally. No discharge from the ear. No discharge from the nose. NECK: Supple. No increased JVD, no thyromegaly, no lymphadenopathy. CARDIOVASCULAR: Normal S1, S2. Regular rate and rhythm. No murmur, no gallop. RESPIRATORY: Lungs clear. ABDOMEN: Soft, nontender. MUSCULOSKELETAL: No edema. NEUROLOGIC: Awake, alert. SKIN: No rash. LABORATORIES: White blood count 7.0, hemoglobin 9.9. Sodium 141, potassium 3.8, creatinine 1.3. ASSESSMENT: 1. CELLULITIS OF THE LOWER EXTREMITIES. 2. CHRONIC PAIN. 3. CHRONIC VENOUS STASIS. 4. DIABETES TYPE 2. 5. MORBID OBESITY. 6. URINARY TRACT INFECTION. PLAN: Continue antibiotics. The patient is on Zosyn IV. Patient waiting for rehab placement. Labs tomorrow morning. DICTATING PHYSICIAN: FRANCISCO LUCIANO M.D. [id number] PHY#: [id number] ID: [id number] JOB#: [id number] ACCT: [id number] cc: > MTDD
[2018-03-22] MEDS: COLCHICINE 0.6 MG TABLET PO SCH (17:26)
[2018-03-22] MEDS: PRAMIPEXOLE DI-HCL 0.5 MG TABLET PO SCH (21:50)
[2018-03-22] MEDS: GABAPENTIN 400 MG CAPSULE PO SCH (21:50)
[2018-03-22] MEDS: INSULIN LISPRO 100 UNIT/ML 3 ML VIAL SUBCUT PRN (21:50)
[2018-03-23] MEDS: IPRATROPIUM/ALBUTEROL 0.5-2.5 MG/3 ML AMPUL NEB SCH ×4 (02:12→19:33)
[2018-03-23] MEDS: PIPERACILLIN SODIUM/TAZOBACTAM 4.5 GM in NORMAL SALINE 100 ML IV SCH ×3 (02:31→17:20)
[2018-03-23] MEDS: LEVOTHYROXINE SODIUM 0.05 MG TABLET PO SCH (05:28)
[2018-03-23] MEDS: CARVEDILOL 3.125 MG TABLET PO SCH ×2 (05:28→17:06)
[2018-03-23] MEDS: OXYCODONE-ACETAMINOPHEN 5-325 MG TABLET PO PRN ×4 (05:28→21:07)
[2018-03-23] MEDS: HEPARIN SOD (PORCINE) 5,000 UNIT/ML 1 ML SYRINGE SUBCUT SCH ×3 (05:29→21:07)
[2018-03-23] MEDS: CYCLOBENZAPRINE HCL 10 MG TABLET PO PRN (07:39)
[2018-03-23] MEDS: SUCRALFATE 1 GM TABLET PO SCH ×4 (07:39→21:07)
[2018-03-23] MEDS: INSULIN LISPRO 100 UNIT/ML 3 ML VIAL SUBCUT SCH ×3 (07:39→17:17)
[2018-03-23] MEDS: FAMOTIDINE 20 MG TABLET PO SCH ×2 (10:40→17:05)
[2018-03-23] MEDS: CYANOCOBALAMIN (VITAMIN B-12) 1,000 MCG TABLET PO SCH (10:40)
[2018-03-23] MEDS: FOLIC ACID 1 MG TABLET PO SCH (10:40)
[2018-03-23] MEDS: ERGOCALCIFEROL (VITAMIN D2) 50000 UNIT (1.25 MG) CAPSULE PO SCH (10:41)
[2018-03-23] MEDS: MULTIVITAMIN TABLET PO SCH (10:41)
[2018-03-23] MEDS: GABAPENTIN 300 MG CAPSULE PO SCH ×3 (10:41→17:06)
[2018-03-23] MEDS: NYSTATIN TOPICAL POWDER 15 GM TP SCH ×2 (10:42→17:06)
[2018-03-23] MEDS: MAGNESIUM OXIDE 400 MG TABLET PO SCH ×2 (11:17→17:06)
[2018-03-23] MEDS: METOLAZONE 5 MG TABLET PO SCH (11:18)
[2018-03-23] MEDS: ALLOPURINOL 300 MG TABLET PO SCH (13:36)
[2018-03-23] MEDS: ASPIRIN 81 MG TABLET, CHEWABLE PO SCH (13:36)
[2018-03-23] MEDS: COLCHICINE 0.6 MG TABLET PO SCH (17:06)
[2018-03-23] MEDS: PRAMIPEXOLE DI-HCL 0.5 MG TABLET PO SCH (21:06)
[2018-03-23] MEDS: GABAPENTIN 400 MG CAPSULE PO SCH (21:07)
[2018-03-23] MEDS ORDERED: NYSTATIN CREAM 15 GM TP PRN (21:08)
[2018-03-24] MEDS: IPRATROPIUM/ALBUTEROL 0.5-2.5 MG/3 ML AMPUL NEB SCH ×4 (01:55→20:19)
[2018-03-24] MEDS: PIPERACILLIN SODIUM/TAZOBACTAM 4.5 GM in NORMAL SALINE 100 ML IV SCH ×3 (03:19→18:11)
[2018-03-24] MEDS: LEVOTHYROXINE SODIUM 0.05 MG TABLET PO SCH (05:27)
[2018-03-24] MEDS: HEPARIN SOD (PORCINE) 5,000 UNIT/ML 1 ML SYRINGE SUBCUT SCH ×3 (05:27→21:59)
[2018-03-24] MEDS: OXYCODONE-ACETAMINOPHEN 5-325 MG TABLET PO PRN ×3 (05:27→18:52)
[2018-03-24] MEDS: CARVEDILOL 3.125 MG TABLET PO SCH ×2 (05:27→18:12)
[2018-03-24 07:01] LABS: HEMATOCRIT 29.8 % (36.0-47.0); HEMOGLOBIN 9.7 g/dL (12.0-15.5); MEAN CORPUSCULAR HEMOGLOBIN 28.1 pg (27.0-33.4); MEAN CORPUSCULAR HGB CONC 32.7 g/dL (32.0-36.0); MEAN CORPUSCULAR VOLUME 86 fl (80-97); PLATELET COUNT 170 10^3/uL (150-450); RED BLOOD COUNT 3.46 10^6/uL (3.72-5.28); RED CELL DISTRIBUTION WIDTH 17.5 % (11.5-14.0); WHITE BLOOD COUNT 7.1 10^3/uL (4.0-10.5)
[2018-03-24 07:31] LABS: ALBUMIN 3.1 g/dL (3.5-5.0); ANION GAP 10 (5-19); BLOOD UREA NITROGEN 17 mg/dL (7-20); CARBON DIOXIDE 32 mmol/L (22-30); CHLORIDE 99 mmol/L (98-107); GLUCOSE 133 mg/dL (75-110); PHOSPHORUS 3.7 mg/dL (2.5-4.5); POTASSIUM 3.7 mmol/L (3.6-5.0); SODIUM 140.9 mmol/L (137-145)
[2018-03-24 07:47] LABS: CALCIUM 9.1 mg/dL (8.4-10.2)
[2018-03-24] MEDS: SUCRALFATE 1 GM TABLET PO SCH ×4 (08:34→21:58)
[2018-03-24] MEDS: INSULIN LISPRO 100 UNIT/ML 3 ML VIAL SUBCUT SCH ×3 (08:35→18:11)
[2018-03-24] MEDS ORDERED: NYSTATIN CREAM 15 GM TP PRN (09:14)
[2018-03-24] MEDS: CYANOCOBALAMIN (VITAMIN B-12) 1,000 MCG TABLET PO SCH (10:27)
[2018-03-24] MEDS: MULTIVITAMIN TABLET PO SCH (10:27)
[2018-03-24] MEDS: FAMOTIDINE 20 MG TABLET PO SCH ×2 (10:27→18:11)
[2018-03-24] MEDS: GABAPENTIN 300 MG CAPSULE PO SCH ×3 (10:28→18:11)
[2018-03-24] MEDS: FOLIC ACID 1 MG TABLET PO SCH (10:28)
[2018-03-24] MEDS: NYSTATIN TOPICAL POWDER 15 GM TP SCH ×2 (10:29→18:13)
[2018-03-24] MEDS: MAGNESIUM OXIDE 400 MG TABLET PO SCH ×2 (11:04→18:10)
[2018-03-24] MEDS: METOLAZONE 5 MG TABLET PO SCH (11:41)
[2018-03-24] MEDS: ASPIRIN 81 MG TABLET, CHEWABLE PO SCH (15:00)
[2018-03-24] MEDS: ALLOPURINOL 300 MG TABLET PO SCH (15:00)
[2018-03-24] MEDS: COLCHICINE 0.6 MG TABLET PO SCH (18:12)
--- NOTE | 2018-03-24 21:38 | PDOC PROGRESS REPORT ---
Subjective Progress Note for:: 03/24/18 Subjective:: 72-year-old with morbid obesity, urinary tract infection and cellulitis of the left leg status post I&D and wound VAC placement. Patient's urinary tract infection grew out Klebsiella pneumonia and she has received antibiotic therapy for this. She remains on Zosyn antibiotics, with resolving cellulitis in her lower extremities. Reason For Visit: UTI CELLULITIS,ARF MORBID OBESITY Physical Exam Vital Signs: Temp Pulse Resp BP Pulse Ox 98.8 F 92 19 96/61 L 100 03/24/18 15:59 03/24/18 19:00 03/24/18 15:59 03/24/18 15:59 03/24/18 15:59 Intake & Output 03/23/18 03/24/18 03/25/18 06:59 06:59 06:59 Intake Total 1182 2110 880 Output Total 400 600 575 Balance 782 1510 305 Weight 187.2 kg 187.5 kg General appearance: PRESENT: no acute distress, morbidly obese Head exam: PRESENT: atraumatic, normocephalic Eye exam: PRESENT: EOMI, PERRLA Mouth exam: PRESENT: moist, neck supple Throat exam: ABSENT: tonsillar erythema, tonsillar exudate Neck exam: ABSENT: carotid bruit, JVD, thyromegaly, tracheal deviation Respiratory exam: ABSENT: accessory muscle use, rales, rhonchi, wheezes Cardiovascular exam: PRESENT: RRR, +S1, +S2 Pulses: PRESENT: normal radial pulses, normal dorsalis pedis pul Vascular exam: PRESENT: normal capillary refill. ABSENT: pallor GI/Abdominal exam: PRESENT: soft. ABSENT: ascites, mass, rigid Musculoskeletal exam: PRESENT: full ROM. ABSENT: ambulatory Neurological exam: PRESENT: alert, oriented to person, oriented to place, oriented to time, CN II-XII grossly intact Psychiatric exam: ABSENT: anxious, flat affect, manic Focused psych exam: ABSENT: catatonic, delusional, paranoid Skin exam: PRESENT: normal color. ABSENT: dry, mottled Results Laboratory Results: 03/24/18 05:29 03/24/18 05:29 03/24/18 03/24/18 05:29 05:29 WBC 7.1 RBC 3.46 L Hgb 9.7 L Hct 29.8 L MCV 86 MCH 28.1 MCHC 32.7 RDW 17.5 H Plt Count 170 Sodium 140.9 Potassium 3.7 Chloride 99 Carbon Dioxide 32 H Anion Gap 10 BUN 17 Creatinine 1.33 H Est GFR ( Amer) 47 L Est GFR (Non-Af Amer) 39 L Glucose 133 H Calcium 9.1 Phosphorus 3.7 Albumin 3.1 L 03/19/18 03/20/18 03/21/18 04:46 05:23 06:50 NT-Pro-B Natriuret Pep 825 831 647 Impressions: Chest X-Ray 03/12/18 19:42 IMPRESSION: NO ACUTE RADIOGRAPHIC FINDING IN THE CHEST. Tibia/Fibula X-Ray 03/12/18 19:42 IMPRESSION: Medial soft tissue laceration without radiopaque foreign body. No fracture. Renal Ultrasound 03/13/18 00:00 IMPRESSION: No definite sonographic abnormality identified. No definite hydronephrosis. Assessment & Plan - Diagnosis (1) Cellulitis Qualifiers: Site of cellulitis of extremity: lower extremity Laterality: left Is this a current diagnosis for this admission?: Yes Plan: Continue Zosyn IV antibiotics at present. Continue wound VAC for wound on left lower extremity. Patient showing significant signs of improvement. (2) Diabetes Qualifiers: Diabetes mellitus type: type 2 Is this a current diagnosis for this admission?: Yes Plan: Continue current insulin regimen. (3) Morbid obesity Is this a current diagnosis for this admission?: Yes Plan: Encourage caloric reduction and weight loss. (4) UTI (urinary tract infection) Is this a current diagnosis for this admission?: Yes Plan: Completed enough antibiotics to treat this. - Time Time Spent with patient: 15-24 minutes - Inpatient Certification Based on my medical assessment, after consideration of the patient's comorbidities, presenting symptoms, or acuity I expect that the services needed warrant INPATIENT care.: Yes I certify that my determination is in accordance with my understanding of Medicare's requirements for reasonable and necessary INPATIENT services [42 CFR 412.3e].: Yes Medical Necessity: Need Close Monitoring Due to Risk of Patient Decompensation, Need for IV Antibiotics
[2018-03-24] MEDS: PRAMIPEXOLE DI-HCL 0.5 MG TABLET PO SCH (21:58)
[2018-03-24] MEDS: GABAPENTIN 400 MG CAPSULE PO SCH (21:58)
[2018-03-25] MEDS: OXYCODONE-ACETAMINOPHEN 5-325 MG TABLET PO PRN ×3 (00:28→10:03)
[2018-03-25] MEDS: IPRATROPIUM/ALBUTEROL 0.5-2.5 MG/3 ML AMPUL NEB SCH ×3 (02:21→13:26)
[2018-03-25] MEDS: PIPERACILLIN SODIUM/TAZOBACTAM 4.5 GM in NORMAL SALINE 100 ML IV SCH ×2 (03:26→10:04)
[2018-03-25] MEDS: LEVOTHYROXINE SODIUM 0.05 MG TABLET PO SCH (05:15)
[2018-03-25] MEDS: HEPARIN SOD (PORCINE) 5,000 UNIT/ML 1 ML SYRINGE SUBCUT SCH ×2 (05:15→14:51)
[2018-03-25] MEDS: CARVEDILOL 3.125 MG TABLET PO SCH (05:15)
[2018-03-25 06:24] LABS: HEMATOCRIT 30.5 % (36.0-47.0); HEMOGLOBIN 9.8 g/dL (12.0-15.5); MEAN CORPUSCULAR HEMOGLOBIN 27.8 pg (27.0-33.4); MEAN CORPUSCULAR VOLUME 87 fl (80-97); PLATELET COUNT 158 10^3/uL (150-450); RED BLOOD COUNT 3.52 10^6/uL (3.72-5.28); RED CELL DISTRIBUTION WIDTH 17.9 % (11.5-14.0); WHITE BLOOD COUNT 6.9 10^3/uL (4.0-10.5)
[2018-03-25 06:54] LABS: ANION GAP 10 (5-19); BLOOD UREA NITROGEN 18 mg/dL (7-20); CALCIUM 9.2 mg/dL (8.4-10.2); CARBON DIOXIDE 32 mmol/L (22-30); CHLORIDE 99 mmol/L (98-107); GLUCOSE 142 mg/dL (75-110); PHOSPHORUS 3.7 mg/dL (2.5-4.5); POTASSIUM 3.6 mmol/L (3.6-5.0)
[2018-03-25] MEDS: CYCLOBENZAPRINE HCL 10 MG TABLET PO PRN (08:25)
[2018-03-25] MEDS: INSULIN LISPRO 100 UNIT/ML 3 ML VIAL SUBCUT SCH ×2 (08:25→12:22)
[2018-03-25] MEDS: SUCRALFATE 1 GM TABLET PO SCH ×2 (08:25→12:23)
[2018-03-25] MEDS: FAMOTIDINE 20 MG TABLET PO SCH (10:02)
[2018-03-25] MEDS: FOLIC ACID 1 MG TABLET PO SCH (10:02)
[2018-03-25] MEDS: MULTIVITAMIN TABLET PO SCH (10:02)
[2018-03-25] MEDS: MAGNESIUM OXIDE 400 MG TABLET PO SCH (10:03)
[2018-03-25] MEDS: CYANOCOBALAMIN (VITAMIN B-12) 1,000 MCG TABLET PO SCH (10:03)
[2018-03-25] MEDS: GABAPENTIN 300 MG CAPSULE PO SCH ×2 (10:03→14:51)
[2018-03-25] MEDS: NYSTATIN TOPICAL POWDER 15 GM TP SCH (10:08)
[2018-03-25] MEDS: INSULIN LISPRO 100 UNIT/ML 3 ML VIAL SUBCUT PRN (12:22)
[2018-03-25] MEDS: METOLAZONE 5 MG TABLET PO SCH (12:23)
--- NOTE | 2018-03-25 13:26 | PDOC TRANSFER SUMMARY ---
General - Admit/Disc Date/PCP Admission Date/Primary Care Provider: 03/13/18 02:07 SHARON KRAUSE DO Discharge Date: 03/25/18 - Discharge Diagnosis (1) Cellulitis Is this a current diagnosis for this admission?: Yes Summary: Presented with left lower extremity abscess s/p debridement and wound vac placement. Tolerating well. Blood culture NGTD/ Would cx with multiple organisms identified including Staph Aureus, Enterobacter, and Group D Enterococcus. Received 1 week course of Zosyn IV. Given improvement with no fevers or leukocytosis, no additional antibiotics will be prescribed at this time. Continue wound VAC for wound on left lower extremity. Will need to determine manager intermediate vac plan. (2) UTI (urinary tract infection) Is this a current diagnosis for this admission?: Yes Summary: Urine culture growing >100,000 Klebsiella - Received Zosyn for 1 week - Bosch catheter removed on day of discharge to prevent catheter associated infection (3) Physical deconditioning Is this a current diagnosis for this admission?: Yes Summary: Discharge to SNF for work with PT. Motivated to improved conditioning. (4) Morbid obesity Is this a current diagnosis for this admission?: Yes Summary: Disabled secondary to her morbid obesity. She gets around in a motorized wheelchair. She is able to lift her legs off the bed now with physical therapy. She cannot yet stand. - emphasized importance of weight loss. Will go to SNF where she should continue to work with PT. Heathy lifestyle should be encouraged and reinforced. - Additional Information Resuscitation Status: Full Code Discharge Diet: Cardiac, Diabetic Discharge Activity: Activity As Tolerated Prescriptions: Oxycodone HCl/Acetaminophen [Percocet 5-325 mg Tablet] 1 tab PO Q4HP PRN 10 Days #20 tablet PRN Reason: For Pain Home Medications: Albuterol Sulfate [Ventolin Hfa] 2 puff IH Q4HP PRN 03/13/18 Alfuzosin HCl [Alfuzosin HCl ER] 10 mg PO DAILY 03/13/18 Allopurinol [Zyloprim 300 mg Tablet] 300 mg PO DAILY 03/13/18 Aspirin [Aspirin 81 mg Chewable Tablet] 81 mg PO DAILY 03/13/18 Carvedilol [Coreg 3.125 mg Tablet] 3.125 mg PO Q12 03/13/18 Colchicine [Colchicine 0.6 mg Tablet] 0.6 mg PO DAILY 03/13/18 Cyanocobalamin (Vitamin B-12) [Vitamin B-12 1000 mcg Tablet] 1,000 mcg PO DAILY 03/13/18 Cyclobenzaprine HCl [Flexeril 10 mg Tablet] 10 mg PO TIDP PRN 03/13/18 Ergocalciferol (Vitamin D2) [Drisdol 50,000 unit (1.25MG) Capsule] 50,000 unit PO MOFR@1000 03/13/18 Folic Acid [Folvite 1 mg Tablet] 1 mg PO DAILY 03/13/18 Furosemide [Lasix 20 mg Tablet] 40 mg PO BID 03/13/18 Gabapentin [Neurontin 300 mg Capsule] 300 mg PO TID 03/13/18 Gabapentin [Neurontin 400 mg Capsule] 400 mg PO QHS 03/13/18 Glipizide [Glucotrol 5 mg Tablet] 10 mg PO BID 03/13/18 Ipratropium/Albuterol Sulfate [Duoneb 3 ml Ampul] 1 vial NEB TIDP PRN 03/13/18 L.acidoph,Paracasei, B.lactis [Probiotic] 1 cap PO DAILY 03/13/18 Levothyroxine Sodium [Synthroid 0.05 mg Tablet] 50 mcg PO Q6AM 03/13/18 Liraglutide [Victoza 2-Jean] 1.8 mg SQ DAILY 03/13/18 Lisinopril [Prinivil 5 mg Tablet] 5 mg PO DAILY 03/13/18 Magnesium Oxide [Mag-Ox 400 mg Tablet] 400 mg PO BID 03/13/18 Metformin HCl [Metformin HCl ER] 1,000 mg PO BID 03/13/18 Metolazone [Zaroxolyn 2.5 mg Tablet] 2.5 mg PO MOWEFR@1000 03/13/18 Multivit-Minerals/FA/Lycopene [One Daily Tablet] 1 tab PO DAILY 03/13/18 Erie-3S/Dha/Epa/Fish Oil/D3 [[place]rie Essentials Liquid] 5 ml PO BID 03/13/18 Potassium Chloride [Klor-Con M20] 20 meq PO BID 03/13/18 Pramipexole Di-HCl [Mirapex] 0.75 mg PO QHS 03/13/18 Ranitidine HCl [Zantac 150 mg Tablet] 150 mg PO BID 03/13/18 Spironolactone [Aldactone 25 mg Tablet] 25 mg PO BID 03/13/18 Sucralfate [Carafate 1 gm Tablet] 1 gm PO ACHS 03/13/18 Oxycodone HCl/Acetaminophen [Percocet 5-325 mg Tablet] 1 tab PO Q4HP PRN 10 Days #20 tablet 03/25/18 History of Present Illness Admission Date/PCP: 03/13/18 02:07 SHARON KRAUSE DO History of Present Illness: PREM COURTNEY is a 72 year old female PMH of morbid obesity, obstructive sleep apnea, chronic venous stasis, diabetes, hypertension, dyslipidemia and debility. She presents after several falls of the last 5 days seen in the emergency room 3 days ago for 6 cm laceration to the left lower leg. At that time the laceration was amenable to Dermabond patient was discharged with instructions to return if develops increased pain or fever. Over the last 6 hours she is noted increased erythema, edema, pain and discharge prompting evaluation emergency room where she is found to have leukocytosis, acute renal failure pyuria and cellulitis of the left lower leg. She started on empiric antibiotics, IV fluids and referred to the hospitalist for admission. Patient describes multiple previous lower extremity injuries requiring sutures and debridement and antibiotic therapy. Physical Exam Vital Signs: Temp Pulse Resp BP Pulse Ox 98.5 F 87 21 H 110/47 L 96 03/25/18 12:00 03/25/18 12:00 03/25/18 12:00 03/25/18 12:00 03/25/18 12:00 Intake & Output 03/24/18 03/25/18 03/26/18 06:59 06:59 06:59 Intake Total 2110 1645 Output Total 600 1075 Balance 1510 570 Weight 187.5 kg 187.3 kg General appearance: PRESENT: no acute distress, cooperative, morbidly obese Head exam: PRESENT: normocephalic Mouth exam: PRESENT: moist Respiratory exam: PRESENT: unlabored. ABSENT: tachypnea, wheezes Cardiovascular exam: PRESENT: +S1, +S2 GI/Abdominal exam: PRESENT: soft. ABSENT: tenderness Extremities exam: PRESENT: +1 edema Musculoskeletal exam: ABSENT: tenderness Neurological exam: PRESENT: alert, awake, oriented to person, oriented to place , oriented to time, CN II-XII grossly intact Psychiatric exam: PRESENT: appropriate affect Skin exam: PRESENT: dry, warm, other - Wound vac in place. ABSENT: erythema - No evidence of active infection, normal color - Chronic skin changes Results Laboratory Results: 03/25/18 06:02 03/25/18 06:02 03/25/18 03/25/18 06:02 06:02 WBC 6.9 RBC 3.52 L Hgb 9.8 L Hct 30.5 L MCV 87 MCH 27.8 MCHC 32.0 RDW 17.9 H Plt Count 158 Sodium 141.0 Potassium 3.6 Chloride 99 Carbon Dioxide 32 H Anion Gap 10 BUN 18 Creatinine 1.30 H Est GFR ( Amer) 49 L Est GFR (Non-Af Amer) 40 L Glucose 142 H Calcium 9.2 Phosphorus 3.7 Albumin 3.0 L 03/19/18 03/20/18 03/21/18 04:46 05:23 06:50 NT-Pro-B Natriuret Pep 825 831 647 Impressions: Chest X-Ray 03/12/18 19:42 IMPRESSION: NO ACUTE RADIOGRAPHIC FINDING IN THE CHEST. Tibia/Fibula X-Ray 03/12/18 19:42 IMPRESSION: Medial soft tissue laceration without radiopaque foreign body. No fracture. Renal Ultrasound 03/13/18 00:00 IMPRESSION: No definite sonographic abnormality identified. No definite hydronephrosis. Transfer Plan - Time Spent with Patient Time spent with patient: Less than 30 Minutes Qualifiers - * PATIENT BEING DISCHARGED WITH ANY OF THE FOLLOWING DIAGNOSIS: No
[2018-03-25] MEDS: ASPIRIN 81 MG TABLET, CHEWABLE PO SCH (14:51)
[2018-03-25] MEDS: ALLOPURINOL 300 MG TABLET PO SCH (14:51)
[2018-03-25 16:09] VITALS: BP 123/70
== END 2018-03-25 18:10 | DRG 580 ==
LOC: ER 19:14 → EH 03-13 02:07 → 3N 03-13 04:06 → 4W 03-17 08:12 → 4S 03-20 16:17
PROVIDERS: ADMIT Internal Medicine; ATTEND Internal Medicine
PROC: 0JDP0ZZ Extraction of Left Lower Leg Subcutaneous Tissue and Fascia, Open Approach (ICD-10-PCS; principal; 2018-03-15 15:00)
DX: L03.116 Cellulitis of left lower limb (principal); N17.9 Acute kidney failure, unspecified; N39.0 Urinary tract infection, site not specified; Z68.44 Body mass index [BMI] 60.0-69.9, adult; S81.812D Laceration without foreign body, left lower leg, subsequent encounter; I50.9 Heart failure, unspecified; I11.0 Hypertensive heart disease with heart failure; E11.65 Type 2 diabetes mellitus with hyperglycemia; K21.9 Gastro-esophageal reflux disease without esophagitis; E78.00 Pure hypercholesterolemia, unspecified; B95.61 Methicillin susceptible Staphylococcus aureus infection as the cause of diseases classified elsewhere; B95.2 Enterococcus as the cause of diseases classified elsewhere; B96.1 Klebsiella pneumoniae [K. pneumoniae] as the cause of diseases classified elsewhere; I89.0 Lymphedema, not elsewhere classified; M10.9 Gout, unspecified; G89.29 Other chronic pain; G47.33 Obstructive sleep apnea (adult) (pediatric); E66.01 Morbid (severe) obesity due to excess calories; W19.XXXD Unspecified fall, subsequent encounter; Y93.89 Activity, other specified; Y92.89 Other specified places as the place of occurrence of the external cause; Z79.84 Long term (current) use of oral hypoglycemic drugs; Z79.82 Long term (current) use of aspirin; Z79.891 Long term (current) use of opiate analgesic; Z79.51 Long term (current) use of inhaled steroids; Z79.899 Other long term (current) drug therapy; Z91.81 History of falling
CPT/HCPCS: 00400; 36415; 51702; 71045; 76775; 80048; 80053; 80069; 80202; 81001; 82565; 82803; 82962; 83036; 83605; 83735; 83880; 85025; 85027; 85610; 87040; 87070; 87075; 87077; 87086; 87088; 87186; 87205; 93005; 93010; 94640; 94660; 94799; 99285; G8978-GP; G8979-GP; J0696; J1644; J1815; J1940; J2250; J2270; J2543; J3370; J3490; J7030; J7060; J7620

== ENCOUNTER 2018-04-04 18:27 | Emergency (ER) | payer MEDICARE, BC ==
--- NOTE | 2018-04-04 18:42 | ER Document Report ---
ED General - General Chief Complaint: Shortness Of Breath Stated Complaint: SHORTNESS OF BREATH Time Seen by Provider: 04/04/18 18:41 Notes: The patient is a 72 yo female, PMH of morbid obesity, obstructive sleep apnea, chronic venous stasis, diabetes, hypertension, dyslipidemia and debility, presents with increased shortness of breath and confusion earlier today. She was discharged from [facility] 10 days ago to [facility] after she was admitted for a worsening leg cellulitis. She finished her Abx. Patient only wears CPAP at home and does not wear oxygen at home. EMS found her satting 80% on room air with diffuse wheezing. She was also slightly confused. Patient does not think she is eating or drinking much for the past few days. She denies hemoptysis, fevers, abdominal pain, increased leg swelling or redness, back pain, focal weakness, numbness, tingling or headache. TRAVEL OUTSIDE OF THE [place] IN LAST 30 DAYS: No - Related Data Allergies/Adverse Reactions: ciprofloxacin [From Cipro] Allergy (Verified 03/12/18 22:47) Sulfa (Sulfonamide Antibiotics) Allergy (Verified 03/12/18 22:47) Past Medical History - General Information source: Patient, Relative, Emergency Med Personnel - Social History Smoking Status: Former Smoker Family History: DM - Past Medical History Cardiac Medical History: Reports: Hx Congestive Heart Failure, Hx Hypercholesterolemia, Hx Hypertension Pulmonary Medical History: Reports: Hx COPD Endocrine Medical History: Reports: Hx Diabetes Mellitus Type 2 Renal/ Medical History: Denies: Hx Peritoneal Dialysis GI Medical History: Reports: Hx Gastroesophageal Reflux Disease Past Surgical History: Reports: Hx Abdominal Surgery - lap band Review of Systems - Review of Systems Notes: REVIEW OF SYSTEMS: CONSTITUTIONAL: -fevers, -chills EENT: -eye pain, -difficulty swallowing, -nasal congestion CARDIOVASCULAR: -chest pain, -syncope. RESPIRATORY: -cough, +SOB GASTROINTESTINAL: -abdominal pain, -nausea, -vomiting, -diarrhea GENITOURINARY: -dysuria, -hematuria, +decreased urination MUSCULOSKELETAL: -back pain, -neck pain SKIN: +left leg wound HEMATOLOGIC: -easy bruising or bleeding. LYMPHATIC: -swollen, enlarged glands. NEUROLOGICAL: -altered mental status or loss of consciousness, -headache, - neurologic symptoms PSYCHIATRIC: -anxiety, -depression. ALL OTHER SYSTEMS REVIEWED AND NEGATIVE. Physical Exam - Vital signs Vitals: Temp 97.9 F 04/04/18 18:30 - Notes Notes: PHYSICAL EXAMINATION: GENERAL: No acute distress. HEAD: Atraumatic, normocephalic. EYES: Pupils equal round and reactive to light, extraocular movements intact, sclera anicteric, conjunctiva are normal. ENT: nares patent, oropharynx clear without exudates. Moist mucous membranes. NECK: Normal range of motion, supple without lymphadenopathy LUNGS: Breath sounds clear to auscultation bilaterally and equal. No wheezes rales or rhonchi. HEART: Irregular rate, HR in 50's. ABDOMEN: Soft, nontender, normoactive bowel sounds. No guarding, no rebound. No masses appreciated. EXTREMITIES: Normal range of motion, no pitting or edema. No cyanosis. NEUROLOGICAL: Cranial nerves grossly intact. Normal speech. Normal sensory and motor exams. PSYCH: Normal mood, normal affect. SKIN: Erythema over left anterior leg wound. Course - Re-evaluation Re-evalutation: Patient with hypotension, hypoxia and bradycardia into upper 40's and 50's. While on the monitor, she went into 4 beats of V. tach, which quickly resolved. Patient with new onset hyperkalemia due to acute renal failure. Patient provided IV fluids and anti-hyperkalemic medications. Patient's hypoxia quickly resolved with 2 L nasal cannula. No signs of pneumonia or fluid overload on chest x-ray. Due to her recent hospitalization, shortness of breath , hypotension and hypoxia, sent a d-dimer to assess for PE. The d-dimer is elevated, but patient unable to obtain a CTA due to her MIRI. V/Q not available at [facility]. Lovenox provided to patient and will continue to monitor. No nephrology on-call at [facility] this weekend and patient requires transfer to facility with Nephrology. 04/04/18 20:50 Spoke to [facility] to discuss transfer to facility with Nephrology and awaiting callback. 04/04/18 21:[address] Camilo Galindo ([facility]) and he has accepted the patient. - Vital Signs Vital signs: Temp Pulse Resp BP Pulse Ox 97.9 F 04/04/18 21:04 - Laboratory Result Diagrams: 04/04/18 19:23 04/04/18 21:10 Laboratory results interpreted by me: 04/04/18 04/04/18 04/04/18 19:23 19:23 19:23 Hgb 11.1 L Hct 33.9 L RDW 18.2 H D-Dimer 3.14 H Potassium 6.7 H* BUN 50 H Creatinine 2.96 H Est GFR ( Amer) 19 L Est GFR (Non-Af Amer) 16 L Glucose 116 H AST 37 H Total Protein 6.2 L Albumin Ur Leukocyte Esterase 04/04/18 04/04/18 20:55 21:10 Hgb Hct RDW D-Dimer Potassium 6.6 H* BUN 49 H Creatinine 2.98 H Est GFR ( Amer) 19 L Est GFR (Non-Af Amer) 15 L Glucose 112 H AST Total Protein 5.8 L Albumin 3.4 L Ur Leukocyte Esterase SMALL H - Diagnostic Test Radiology reviewed: Image reviewed, Reports reviewed Radiology results interpreted by me: CXR: NAD - EKG Interpretation by Me EKG shows normal: [place], Intervals Rate: Bradycardia Rhythm: A.Fib When compared to previous EKG there are: Changes noted Critical Care Note - Critical Care Note Total time excluding time spent on procedures (mins): 45 Discharge - Discharge Clinical Impression: Hyperkalemia, Hypoxia Arrhythmia Qualifiers: Arrhythmia type: ventricular tachycardia Qualified Code(s): I47.2 - Ventricular tachycardia Condition: Stable Disposition: [facility] Referrals: CHRISTINA RODRIGUEZ DO [NO LOCAL MD] - Follow up as needed
[2018-04-04] MEDS ORDERED: NORMAL SALINE 1000 ML 1,000 ML IV ONE ×2 (18:59→20:30)
[2018-04-04] MEDS ORDERED: PIPERACILLIN/TAZOBACTAM 4.5 GM VIAL IV ONE (18:59)
[2018-04-04 19:40] LABS: ABSOLUTE BASOPHILS # (AUTO) 0.1 10^3/uL (0.0-0.2); ABSOLUTE EOSINOPHILS # (AUTO) 0.3 10^3/uL (0.0-0.6); ABSOLUTE LYMPHOCYTES (AUTO) 1.1 10^3/uL (0.5-4.7); ABSOLUTE MONOCYTES (AUTO) 0.6 10^3/uL (0.1-1.4); ABSOLUTE NEUT (AUTO) 5.1 10^3/uL (1.7-8.2); BASOPHILS % (AUTO) 1.1 % (0-2); EOSINOPHILS % (AUTO) 3.6 % (0-6); HEMATOCRIT 33.9 % (36.0-47.0); HEMOGLOBIN 11.1 g/dL (12.0-15.5); LYMPHOCYTES % (AUTO) 15.9 % (13-45); MEAN CORPUSCULAR HEMOGLOBIN 28.7 pg (27.0-33.4); MEAN CORPUSCULAR HGB CONC 32.7 g/dL (32.0-36.0); MEAN CORPUSCULAR VOLUME 88 fl (80-97); MONOCYTES % (AUTO) 7.9 % (3-13); PLATELET COUNT 200 10^3/uL (150-450); RED BLOOD COUNT 3.87 10^6/uL (3.72-5.28); RED CELL DISTRIBUTION WIDTH 18.2 % (11.5-14.0); SEGMENTED NEUTROPHILS % (AUTO) 71.5 % (42-78); TOTAL CELLS COUNTED % (AUTO) 100 %; WHITE BLOOD COUNT 7.1 10^3/uL (4.0-10.5)
[2018-04-04 19:52] LABS: VENOUS BLOOD BASE EXCESS 0.9 mmol/L; VENOUS BLOOD HCO3 28.2 mmol/L (20-32); VENOUS BLOOD PCO2 57.5 mmHg (35-63); VENOUS BLOOD PH 7.31 (7.30-7.42)
[2018-04-04 20:06] LABS: ALANINE AMINOTRANSFERASE 35 U/L (9-52); ALBUMIN 3.6 g/dL (3.5-5.0); ALKALINE PHOSPHATASE 80 U/L (38-126); ANION GAP 10 (5-19); ASPARTATE AMINO TRANSFERASE 37 U/L (14-36); BILIRUBIN,DIRECT 0.4 mg/dL (0.0-0.4); BILIRUBIN,TOTAL 0.4 mg/dL (0.2-1.3); BLOOD UREA NITROGEN 50 mg/dL (7-20); CALCIUM 9.3 mg/dL (8.4-10.2); CARBON DIOXIDE 30 mmol/L (22-30); CHLORIDE 100 mmol/L (98-107); CREATINE KINASE 61 U/L (30-135); GLUCOSE 116 mg/dL (75-110); TOTAL PROTEIN 6.2 g/dL (6.3-8.2)
--- NOTE | 2018-04-04 20:16 | RADIOLOGY REPORT (SQ) ---
EXAM DESCRIPTION: CHEST SINGLE VIEW COMPLETED DATE/TIME: 04/04/2018 7:11 pm REASON FOR STUDY: SOB COMPARISON: Chest x-ray 03/12/2018. EXAM PARAMETERS: NUMBER OF VIEWS: One view. TECHNIQUE: Single frontal radiographic view of the chest acquired. RADIATION DOSE: NA LIMITATIONS: None. FINDINGS: LUNGS AND PLEURA: No consolidation, pneumothorax or pleural effusion. MEDIASTINUM AND HILAR STRUCTURES: No masses. Contour normal. HEART AND VASCULAR STRUCTURES: Heart upper normal limit in size. No overt vascular congestion. BONES: No acute findings. HARDWARE: None in the chest. IMPRESSION: No acute radiographic finding in the chest. TECHNICAL DOCUMENTATION: JOB ID: [id number] [employer]- All Rights Reserved Reading location - IP/workstation name: [email or web address]
[2018-04-04 20:21] LABS: POTASSIUM 6.7 mmol/L (3.6-5.0)
[2018-04-04] MEDS ORDERED: CALCIUM GLUCONATE 1000 MG/10 ML INJ IV ONE (20:29)
[2018-04-04] MEDS ORDERED: SODIUM BICARBONATE 8.4% INJ 50 MEQ/50 ML DISP.SYRIN IV ONE (20:30)
[2018-04-04] MEDS ORDERED: DEXTROSE 50%-WATER 25 GM/50 ML DISP.SYRIN IV ONE (20:30)
[2018-04-04] MEDS ORDERED: INSULIN REG, HUMAN 100 UNIT/ML 3 ML VIAL (PYX) IV ONE (20:30)
[2018-04-04 21:20] LABS: APPEARANCE,URINE SLIGHTLY-CLOUDY; BILIRUBIN,URINE NEGATIVE (NEGATIVE); COLOR,URINE YELLOW; GLUCOSE, URINE NEGATIVE (NEGATIVE); KETONES,URINE NEGATIVE (NEGATIVE); LEUKOCYTE ESTERASE,URINE SMALL (NEGATIVE); NITRITE,URINE NEGATIVE (NEGATIVE); PROTEIN,URINE NEGATIVE (NEGATIVE); URINE SPECIFIC GRAVITY 1.014; UROBILINOGEN,URINE NEGATIVE mg/dL (<2.0)
[2018-04-04 21:34] LABS: ALANINE AMINOTRANSFERASE 35 U/L (9-52); ALBUMIN 3.4 g/dL (3.5-5.0); ALKALINE PHOSPHATASE 84 U/L (38-126); ANION GAP 10 (5-19); ASPARTATE AMINO TRANSFERASE 31 U/L (14-36); BILIRUBIN,DIRECT 0.3 mg/dL (0.0-0.4); BILIRUBIN,TOTAL 0.3 mg/dL (0.2-1.3); BLOOD UREA NITROGEN 49 mg/dL (7-20); CALCIUM 9.1 mg/dL (8.4-10.2); CARBON DIOXIDE 27 mmol/L (22-30); GLUCOSE 112 mg/dL (75-110); SODIUM 139.4 mmol/L (137-145); TOTAL PROTEIN 5.8 g/dL (6.3-8.2)
[2018-04-04 21:40] LABS: CHLORIDE 102 mmol/L (98-107); POTASSIUM 6.6 mmol/L (3.6-5.0)
[2018-04-04] MEDS ORDERED: APIXABAN 5 MG TABLET PO ONE (23:44)
[2018-04-05 02:34] LABS: ANION GAP 7 (5-19); BLOOD UREA NITROGEN 47 mg/dL (7-20); CALCIUM 9.2 mg/dL (8.4-10.2); CARBON DIOXIDE 31 mmol/L (22-30); CHLORIDE 101 mmol/L (98-107); GLUCOSE 132 mg/dL (75-110); SODIUM 139.1 mmol/L (137-145)
[2018-04-05 02:58] VITALS: BP 98/53
--- NOTE | 2018-04-05 10:05 | EKG REPORT ---
SEVERITY:- ABNORMAL ECG - ATRIAL FIBRILLATION vsACCELERATED JUNCTIONAL RHYTHM AND INTERMITTENT SINUS ARREST VENTRICULAR TRIGEMINY BORDERLINE T ABNORMALITIES, ANT-LAT LEADS REC REPEAT EKG : Confirmed by: Julius Davidson 05-Apr-2018 10:04:46
== END 2018-04-05 03:15 | disposition short-term general hospital (02) ==
LOC: ER 18:27
DX: E87.5 Hyperkalemia (principal); R09.02 Hypoxemia; I47.2 Ventricular tachycardia; R06.02 Shortness of breath; Z88.3 Allergy status to other anti-infective agents; Z88.2 Allergy status to sulfonamides; I50.9 Heart failure, unspecified; E78.00 Pure hypercholesterolemia, unspecified; I11.0 Hypertensive heart disease with heart failure; J44.9 Chronic obstructive pulmonary disease, unspecified; E11.9 Type 2 diabetes mellitus without complications; E66.01 Morbid (severe) obesity due to excess calories
CPT/HCPCS: 93005; 99291; 96361; 51702; 96375; 96365; 36415; 87040; 87086; 82962; 82550; 85025; 87088; 80048; 80053; 81001; 84484; 87186; 85379; 82803; 83605; 71045; 93010; J0610; J3490 ×2; A9270 ×2; J7030; J2543; J1815

== ENCOUNTER → 2018-04-24 | Outpatient (CLI) | payer MEDICARE, BC ==
[2018-04-24 14:59] LABS: ANION GAP 9 (5-19); BLOOD UREA NITROGEN 22 mg/dL (7-20); CALCIUM 8.9 mg/dL (8.4-10.2); CARBON DIOXIDE 34 mmol/L (22-30); CHLORIDE 100 mmol/L (98-107); GLUCOSE 89 mg/dL (75-110); POTASSIUM 4.3 mmol/L (3.6-5.0); SODIUM 143.3 mmol/L (137-145)
== END ==
LOC: PNR 12:44
PROVIDERS: ATTEND Family Medicine
DX: N18.9 Chronic kidney disease, unspecified (principal); E11.9 Type 2 diabetes mellitus without complications; I48.91 Unspecified atrial fibrillation
CPT/HCPCS: 80048; 83036; 84443

== ENCOUNTER → 2018-05-26 | Outpatient (CLI) | payer MEDICARE, BC ==
--- NOTE | 2018-05-27 07:56 | XCELERA REPORT ---
[address] [address] Lower Extremity Arterial Evaluation Name: PREM COURTNEY Age: 72 yrs Gender: Female : 1945 Patient Status: Preadmit Patient Location: Study Date: 05/26/2018 01:29 PM Procedure: A color flow and duplex scan of the lower extremity arteries was performed bilaterally with velocity and waveform anaylsis. Ankle brachial indicies performed. Reason For Study: ULCER Ordering Physician: DENIS GALEANO Performed By: Oralia Sims Measurements and Calculations Right Left BANANA EXPERT PSV 225.0 218.9 cm/sec Prox PFA PSV -167.6 89.4 cm/sec Prox SFA PSV 145.8 180.7 cm/sec Mid SFA PSV -171.1 -174.6cm/sec Dist SFA PSV -122.6 -165.0cm/sec Prox Pop A PSV 146.0 126.6 cm/sec Dist MICKIE PSV 140.4 134.1 cm/sec Dist [employer]UD[employer] DIRECTOR PSV -122.9 cm/sec Mp Pedis PSV 119.4 -52.3 cm/sec Right Side Arterial Evaluation Normal velocity and triphasic waveforms noted from the Common Femoral artery to the infrageniculate vessels. 0 % stenosis . Ankle Brachial index not done due to pain. Left Side Arterial Evaluation Normal velocity and biphasic waveforms noted from the Common Femoral artery to the infrageniculate vessels. Slightly elevated velocity in the Common Femoral. 20-49 % stenosis at the Aorta Iliac inflow. Ankle Brachial index not done due to wrapping. Interpretation Summary No hemodynamically significant lesions in the right lower extremity only, on duplex imaging, at rest. Moderate hemodynamically significant lesions in the left lower extremity only, on duplex imaging, at rest. : DENIS GALEANO > Samm Aguero
--- NOTE | 2018-05-27 12:22 | XCELERA REPORT ---
[address] [address] Lower Extremity Venous Evaluation Procedure: A bilateral duplex scan of the lower extremity veins was performed. The evaluation included responses to compression and other maneuvers with patient in the supine and standing positions to assess venous insufficiency. Right Sided Venous Evaluation Deep venous system evaluatiion shows patent veins with no obstruction or significant reflux identified. Sapheno Femoral junction: no reflux. Femoral vein reflux: no reflux. Greater Saphenous vein, Proximal thigh: reflux: no reflux. Greater Saphenous vein, Distal thigh: reflux: no reflux. Greater Saphenous vein, Proximal below knee: reflux: no reflux. No significant Perforators identified. Left Sided Venous Evaluation Study limited by presence of bandages. Deep venous system evaluation shows patent veins with no obstruction or significant reflux identified. Saphena Femoral junction: no reflux. Femoral vein reflux: no reflux. Greater Saphenous vein, Proximal thigh: reflux: no reflux. Greater Saphenous vein, Distal thigh: reflux: no reflux. Greater Saphenous vein, Proximal below knee: reflux: no reflux. No significant Perforators identified. Interpretation Summary No duplex evidence of DVT or obstruction in the bilateral lower extremities. No significant deep or superficial reflux noted. Name: PREM COURTNEY Age: 72 yrs Gender: Female : 1945 Patient Status: Preadmit Patient Location: Study Date: 05/26/2018 02:00 PM Reason For Study: ULCER Ordering Physician: DENIS GALEANO Performed By: Oralia Sims : DENIS GALEANO > Samm Aguero
== END ==
LOC: SP 12:57
PROVIDERS: ATTEND Nurse Practitioner
DX: L97.222 Non-pressure chronic ulcer of left calf with fat layer exposed (principal)
CPT/HCPCS: 93925; 93970